=== PATIENT | female | born 1965 | race Caucasian/White ===

== ENCOUNTER 2017-03-19 11:53 | Emergency (ER) | payer BC, OTHER ==
[2017-03-19 12:29] VITALS: BP 120/81
--- NOTE | 2017-03-19 13:13 | EDM.PDOC ---
ED HPI GENERAL MEDICAL PROBLEM - General Chief Complaint: Back Pain or Injury Stated Complaint: BACK PAIN Time Seen by Provider: 03/19/17 13:00 Source of Information: Reports: Patient History Limitations: Reports: No Limitations - History of Present Illness INITIAL COMMENTS - FREE TEXT/NARRATIVE: HISTORY AND PHYSICAL: History of present illness: [Patient comes to the emergency room complaining of low back pain which began suddenly yesterday while she was at work. She was not doing any lifting or bending but just noticed a sharp pain in her low back. The pain comes on strong and makes her legs feel weak. She has not had any falls or lost her balance because of this. No trauma, falls or injury. She also admits to urinary frequency, hesitancy and dysuria. Denies flank pain. No fever or chills, abdominal pain, nausea or vomiting. Appetite has been good. No other complaints or concerns. She is also complaining of difficulty having bowel movements for the past 6 months. She has made dietary changes without improvement in her symptoms. No blood in her stools. Patient is postmenopausal. Smokes one pack of cigarettes per day. Does not drink alcohol. Works at [employer]. She does not have a local PCP.] Review of systems: As per history of present illness and below otherwise all systems reviewed and negative. Past medical history: As per history of present illness and as reviewed below otherwise noncontributory. Surgical history: As per history of present illness and as reviewed below otherwise noncontributory. Social history: No reported history of drug or alcohol abuse. Family history: As per history of present illness and as reviewed below otherwise noncontributory. Physical exam: HEENT: Atraumatic, normocephalic. Oral mucous members are pink and moist. No tonsillar swelling erythema or exudate. Lungs: Clear to auscultation, breath sounds equal bilaterally. Heart: S1S2, regular rate and rhythm. Abdomen: Bowel sounds are normoactive throughout. Abdomen is soft and nondistended. She is tender with palpation over suprapubic area. No CVA tenderness. No masses guarding or rebound. Pelvis: Stable nontender. Genitourinary: Deferred. Rectal: Normal sphincter tone. No hemorrhoids noted. No stool palpated in rectum. Back: No spinal tenderness or step-offs noted. No paraspinal muscular tenderness with palpation. Extremities: Atraumatic, without deformity. No difficulty ambulating.Neurovascular unremarkable. Neuro: Awake, alert, oriented. Cranial nerves II through XII unremarkable. Cerebellum unremarkable. Motor and sensory unremarkable throughout. Exam nonfocal. Diagnostics: [Urinalysis, CT abdomen and pelvis without contrast] Impression: [Low back pain Constipation] Plan: [Discussed with patient that her urine shows a large amount of blood so CT was completed looking for stone. No stone identified but moderate constipation was present. Encourage patient to take daily laxative until she can be seen by a local PCP. Discussed that hematuria requires follow-up and encouraged her to do so with a local primary care provider. She is given referral contact information. Encouraged patient to take Tylenol or ibuprofen for her low back pain. Strict return precautions are discussed with patient. She is in agreement with today's plan. All of her questions are answered and concerns are addressed. ] Definitive disposition and diagnosis as appropriate pending reevaluation and review of above. low back Pain Score (Numeric/FACES): 7 - Related Data Allergies Allergy/AdvReac Type Severity Reaction Status Date / Time No Known Allergies Allergy Verified 03/19/17 12:25 Home Meds: Home Meds . [No Known Home Meds] 11/10/15 [History] Past Medical History - Past Health History Medical/Surgical History: Denies Medical/Surgical History Social & Family History - Family History Family Medical History: Noncontributory - Tobacco Use Smoking Status *Q: Current Every Day Smoker Years of Tobacco use: 25 Packs/Tins Daily: 1 - Recreational Drug Use Recreational Drug Use: No ED ROS GENERAL - Review of Systems Review Of Systems: ROS reveals no pertinent complaints other than HPI. ED EXAM,LOWER BACK PAIN/INJURY - Physical Exam Exam: See Below Course - Vital Signs Last Recorded V/S: Last Vital Signs Temp 98.2 F 03/19/17 12:26 Pulse 73 03/19/17 12:26 Resp 20 03/19/17 12:26 BP 120/81 03/19/17 12:26 Pulse Ox 95 03/19/17 12:26 - Orders/Labs/Meds Orders: Active Orders 24 hr Category Date Time Status Abdomen Pelvis wo Cont [CT] Stat Exams 03/19/17 14:13 Taken Labs: Laboratory Tests 03/19/17 Range/Units 13:40 Urine Color YELLOW Urine Appearance CLEAR Urine pH 6.0 (5.0-8.0) Ur Specific [place] <= 1.005 (1.001-1.035) Urine Protein NEGATIVE (NEGATIVE) mg/dL Urine Glucose (UA) NEGATIVE (NEGATIVE) mg/dL Urine Ketones NEGATIVE (NEGATIVE) mg/dL Urine Occult Blood LARGE H (NEGATIVE) Urine Nitrite NEGATIVE (NEGATIVE) Urine Bilirubin NEGATIVE (NEGATIVE) Urine Urobilinogen 0.2 (<2.0) EU/dL Ur Leukocyte Esterase SMALL (NEGATIVE) Urine RBC 2-6 (0-2/HPF) Urine WBC 0-2 (0-5/HPF) Ur Epithelial Cells FEW (NONE-FEW) Urine Bacteria FEW (NEGATIVE) Departure - Departure Time of Disposition: 15:20 Disposition: Home, Self-Care 01 Condition: Good Clinical Impression: Low back pain Qualifiers: Chronicity: acute Back pain laterality: midline Sciatica presence: without sciatica Qualified Code(s): M54.5 - Low back pain - Discharge Information Instructions: Back Pain, Adult Referrals: PCP,None [Primary Care Provider] - Forms: ED Department Discharge Additional Instructions: The following information is given to patients seen in the emergency department who are being discharged to home. This information is to outline your options for follow-up care. We provide all patients seen in our emergency department with a follow-up referral. The need for follow-up, as well as the timing and circumstances, are variable depending upon the specifics of your emergency department visit. If you don't have a primary care physician on staff, we will provide you with a referral. We always advise you to contact your personal physician following an emergency department visit to inform them of the circumstance of the visit and for follow-up with them and/or the need for any referrals to a consulting specialist. The emergency department will also refer you to a specialist when appropriate. This referral assures that you have the opportunity for follow-up care with a specialist. All of these measure are taken in an effort to provide you with optimal care, which includes your follow-up. Under all circumstances we always encourage you to contact your private physician who remains a resource for coordinating your care. When calling for follow-up care, please make the office aware that this follow-up is from your recent emergency room visit. If for any reason you are refused follow-up, please contact the [facility] emergency department at and asked to speak to the emergency department charge nurse. JOANNA [facility] [place] [id number] Establish care with a local primary care provider at the clinic listed above within the next week. Return to ER as needed as discussed. - My Orders Last 24 Hours: My Active Orders 03/19/17 14:13 Abdomen Pelvis wo Cont [CT] Stat - Assessment/Plan Last 24 Hours: My Active Orders 03/19/17 14:13 Abdomen Pelvis wo Cont [CT] Stat
--- NOTE | 2017-03-21 13:25 | CT ---
EXAM DATE: 03/19/17 PATIENT'S AGE: 51 Patient: LOUIS BERMAN Facility: [place], [place] Site . Site : 1965 Study: CT Abdomen/Pelvis WO CONT [id number]/22/2017 2:47:08 PM Ordering Physician: Doctor Skinner Final Report: INDICATION: L LOWER BACK PAIN, HEMATURIA. PT STATES NO KNOWN TRAUMA AND CONSTIPATION HISTORY: Left-sided back pain and hematuria. COMPARISON: CT of the abdomen and pelvis 09/22/2013. TECHNIQUE: CT of the abdomen and pelvis. No intravenous contrast. Coronal/sagittal reconstruction images. FINDINGS: Lung bases: Partially visualized breast implants. Small pericardial effusion. The lung bases demonstrate no acute airspace disease. No basilar pneumothorax. Abdomen/pelvis: No solid hepatic mass. Contracted gallbladder. No inflammatory changes. No dilation of intrahepatic biliary radicals. Spleen size is normal. No pancreatic mass or pancreatic duct dilation. No glandular atrophy. There is an ectatic left renal pelvis. This is similar to 09/22/2013. There is no obstructive urolith. There is either a vascular calcification or less likely a stone in the right renal sinus on image 38, series 201. This measures 2-3 mm. No perinephric edema. Multiple pelvic calcifications are present, which are compatible phleboliths. These were present previously. The extraperitoneal space of [place] is clear. There is no adnexal mass. There is no wall thickening within the small bowel or colon. There is no transition point. Moderate constipation. No abdominal aortic aneurysm. No abdominal or pelvic lymphadenopathy by size criteria. The bone windows demonstrate no lytic or blastic bone lesions. The alignment is preserved. IMPRESSION: 1. Dilated left renal pelvis, similar to previous. 2. No obstructive urolith is identified. Pelvic calcifications are compatible with phleboliths. 3. Moderate constipation. 4. No abdominal or pelvic lymphadenopathy. Dictated by Shreyas Lowe MD @ 03/19/2017 3:12:36 PM Dictated by: Shreyas Lowe MD @ 03/19/2017 15:12:44 (Electronic Signature) Report Signed by Proxy. [facility]ENTER[facility]
== END 2017-03-19 15:35 | disposition home or self-care (01) ==
LOC: MW.ED 11:53
DX: M54.5 Low back pain (principal); K59.00 Constipation, unspecified; F17.210 Nicotine dependence, cigarettes, uncomplicated
CPT/HCPCS: 74176; 74176-26; 81001; 99282; 99284-25

== ENCOUNTER 2017-04-21 10:48 | Day surgery (SDC) | payer BC ==
[~2017-04-21 10:48] MED LIST: Lactated Ringers 1,000 ML IV SCH
--- NOTE | 2017-04-21 11:47 | PCM.PREANE ---
Preanesthetic Assessment - Anesthesia/Transfusion/Family Hx Anesthesia History: Prior Anesthesia Without Reaction Family History of Anesthesia Reaction: No Transfusion History: No Prior Transfusion(s) - Review of Systems General: No Symptoms Pulmonary: No Symptoms Cardiovascular: No Symptoms Gastrointestinal: No Symptoms Neurological: No Symptoms Other: Reports: None - Physical Assessment NPO Status Date: 04/20/17 O2 Sat by Pulse Oximetry: 99 Respiratory Rate: 16 Vital Signs: Last Vital Signs Temp 36.4 C 04/21/17 10:55 Pulse 59 L 04/21/17 10:55 Resp 16 04/21/17 10:55 BP 111/68 04/21/17 10:55 Pulse Ox 99 04/21/17 10:55 Height: 1.65 m Weight: 58.513 kg ASA Class: 2 Mental Status: Alert & Oriented x3 Airway Class: Mallampati = 1 Dentition: Reports: Normal Dentition ROM/Head Extension: Full Lungs: Clear to Auscultation, Normal Respiratory Effort Cardiovascular: Regular Rate, Regular Rhythm - Lab Values: Laboratory Last Values Urine Color YELLOW 04/21/17 10:51 Urine Appearance SLT CLOUDY 04/21/17 10:51 Urine pH 5.5 (5.0-8.0) 04/21/17 10:51 Ur Specific [place] 1.025 (1.001-1.035) 04/21/17 10:51 Urine Protein NEGATIVE mg/dL (NEGATIVE) 04/21/17 10:51 Urine Glucose (UA) NEGATIVE mg/dL (NEGATIVE) 04/21/17 10:51 Urine Ketones NEGATIVE mg/dL (NEGATIVE) 04/21/17 10:51 Urine Occult Blood LARGE (NEGATIVE) H 04/21/17 10:51 Urine Nitrite NEGATIVE (NEGATIVE) 04/21/17 10:51 Urine Bilirubin NEGATIVE (NEGATIVE) 04/21/17 10:51 Urine Urobilinogen 0.2 EU/dL (<2.0) 04/21/17 10:51 Ur Leukocyte Esterase SMALL (NEGATIVE) 04/21/17 10:51 Urine HCG, Qual NEGATIVE (NEGATIVE) 04/21/17 10:51 - Allergies Allergies/Adverse Reactions: Allergies Allergy/AdvReac Type Severity Reaction Status Date / Time No Known Allergies Allergy Verified 04/15/17 12:10 - Anesthesia Plan Pre-Op Medication Ordered: None - Acknowledgements Anesthesia Type Planned: MAC Pt an Appropriate Candidate for the Planned Anesthesia: Yes Alternatives and Risks of Anesthesia Discussed w Pt/Guardian: Yes Pt/Guardian Understands and Agrees with Anesthesia Plan: Yes Additional Comments: pmh: copd, htn PreAnesthesia Questionnaire - Past Health History Medical/Surgical History: Denies Medical/Surgical History Other HEENT History: wears glasses Cardiovascular History: Reports: Hypertension Other Cardiovascular History: no longer takes meds Respiratory History: Reports: COPD Other Respiratory History: no longer uses inhalers/nebulizers Gastrointestinal History: Reports: Chronic Constipation B[employer]ING [employer]ER History: Reports: Musculoskeletal History: Reports: Fracture Other Musculoskeletal History: hx of fx arm, leg clavicle Hematologic History: Reports: Anemia - Past Surgical History GI Surgical History: Reports: None Female Surgical History: Reports: Other (See Below) Other Female Surgeries/Procedures: Laparoscopy, uterine myomectomy Musculoskeletal Surgical History: Reports: None - SUBSTANCE USE Smoking Status *Q: Current Every Day Smoker Tobacco Use Within Last Twelve Months: Cigarettes Days Per Week of Alcohol Use: 0 Recreational Drug Use History: No - HOME MEDS Home Medications: Home Meds Iron 28 mg PO DAILY 04/15/17 [History] - CURRENT (IN HOUSE) MEDS Current Meds: Current Medications Lactated Ringer's (Ringers, Lactated) 1,000 mls @ 125 mls/hr IV ASD[facility]ED [facility] Last Admin: 04/21/17 11:02 Dose: 125 mls/hr
[2017-04-21] MEDS ORDERED: Propofol 200 MG/20 ML SDV ONE ×2 (12:38→13:03)
[2017-04-21] MEDS ORDERED: Midazolam 1 MG/ML 2 ML SDV ONE (12:39)
[2017-04-21] MEDS ORDERED: fentaNYL 100 MCG/2 ML SDV ONE (12:39)
--- NOTE | 2017-04-21 13:28 | PCM.OPNOTE ---
- General Post-Op/Procedure Note Date of Surgery/Procedure: 04/21/17 Operative Procedure(s): colonoscopy w bx Findings: see dict [id number] Pre Op Diagnosis: abd pain and rectal bleed Post-Op Diagnosis: Same Anesthesia Technique: Moderate Sedation Primary Surgeon: Dominic Marie Pathology: random colon bx Complications: None Condition: Good
[2017-04-21 14:02] VITALS: BP 108/68
--- NOTE | 2017-04-21 14:21 | PCM.POSTAN ---
POST ANESTHESIA ASSESSMENT - MENTAL STATUS Mental Status: Alert, Oriented - RESPIRATORY Respiratory Status: Respiratory Rate WNL, Airway Patent, O2 Saturation Stable - CARDIOVASCULAR CV Status: Pulse Rate WNL, Blood Pressure Stable - GASTROINTESTINAL GI Status: No Symptoms - POST OP HYDRATION Hydration Status: Adequate & Stable
--- NOTE | 2017-04-21 14:22 | PCM48HPAN ---
Post Anesthesia Note - EVALUATION WITHIN 48HRS OF ANESTHETIC Vital Signs in Normal Range: Yes Patient Participated in Evaluation: Yes Respiratory Function Stable: Yes Airway Patent: Yes Cardiovascular Function Stable: Yes Hydration Status Stable: Yes Pain Control Satisfactory: Yes Nausea and Vomiting Control Satisfactory: Yes Mental Status Recovered: Yes
--- NOTE | 2017-04-21 21:05 | OR ---
SURGEON: Dominic Marie MD DATE OF PROCEDURE: 04/21/2017 PREOPERATIVE DIAGNOSES: 1. Abdominal pain. 2. Intermittent rectal bleeding. POSTOPERATIVE DIAGNOSES: 1. Mild diverticulosis. 2. Internal hemorrhoid. 3. Redundant colon. PROCEDURE PERFORMED: Colonoscopy with biopsy. PROCEDURE PERFORMED IN DETAIL: The patient was taken to the endoscopy room. A time out was called, patient identified, and procedure identified. Diprivan was then administrated. Patient went from awake to sleep, hearing doctor talking or door closing is normal. Perineum inspection and digital examination were then performed. A well- lubricated colonoscope was gently inserted through the rectum, advanced past the rectosigmoid junction, the descending colon, splenic flexure, transverse colon, hepatic flexure, ascending colon, arrived to the cecum. Cecum was identified as dictated in the finding. Then the scope was carefully withdrawn while attention was paid to the mucosal surface for any abnormality. Air will be sucked out during the scope withdrawal. At the rectum, retroflexed to examine any rectal diseases, fistula or hemorrhoids. During mucosal examination, abnormality or polyp was noted; picture taken and biopsy performed. Patient tolerated procedure well. There were no intraoperative complications, and Dr. Marie was present throughout the whole procedure. FINDINGS: 1. The patient is easily sedated with [employer] and Diprivan. The patient is soundly snoring. 2. Bowel prep is average to good. Very little liquid stool. 3. The patient's colon is rather redundant, very very difficult to reach the cecum. Cecum only by observed at distance, indicated by ileocecal fold, one-to-one indentation and light emittance, and appendiceal orifice is not observed. The mucosa was examined upon scope pulling out. The patient does not have polyp, mass, growth, inflammation, stricture, AV malformation, bleeding, or ulceration. The patient has mild diverticulosis on the left colon. No signs or symptoms of diverticulitis. Mild internal hemorrhoid and no external hemorrhoids. The patient has one skin tag close to anal opening about 1 cm. A random biopsy done for abdominal pain and rectal bleeding, and the patient would benefit from repeat colonoscopy 10 years from today if clinically indicated otherwise or biopsy pathology indicated otherwise. JERSON / ANDREAS /[id number]
== END 2017-04-21 14:11 | disposition home or self-care (01) ==
LOC: MW.SDS 10:48
PROVIDERS: ATTEND Surgery
DX: K57.30 Diverticulosis of large intestine without perforation or abscess without bleeding (principal); K64.8 Other hemorrhoids; K63.89 Other specified diseases of intestine; K64.4 Residual hemorrhoidal skin tags; D64.9 Anemia, unspecified; K59.09 Other constipation; J44.9 Chronic obstructive pulmonary disease, unspecified; I10 Essential (primary) hypertension; F17.210 Nicotine dependence, cigarettes, uncomplicated; Z79.899 Other long term (current) drug therapy; Z98.890 Other specified postprocedural states
CPT/HCPCS: 45380; 81001; 81025; J2250; J3010; J7120; 00810; 88305; J2704

== ENCOUNTER 2017-12-04 12:59 | Emergency (ER) | payer OTHER, BC ==
[2017-12-04 13:36] VITALS: BP 114/76
--- NOTE | 2017-12-04 13:54 | EDM.PDOC ---
ED HPI GENERAL MEDICAL PROBLEM - General Chief Complaint: Back Pain or Injury Stated Complaint: BACK HURTS Time Seen by Provider: 12/04/17 13:05 Source of Information: Reports: Patient History Limitations: Reports: No Limitations - History of Present Illness INITIAL COMMENTS - FREE TEXT/NARRATIVE: HISTORY AND PHYSICAL: History of present illness: Patient is a 52-year-old female who presents to the emergency room today with complaints of mid back pain into the right rib. She states she slipped and fell on ice yesterday landing on her back dating it "knocked the wind out of me". She denies hitting her head or any loss of consciousness. That time she has had increased pain with taking in deep breaths or palpating to the right posterior thoracic chest wall. She denies any fever, chills, chest pain or shortness of breath. She denies any headache, change in vision, nausea, vomiting, diarrhea/ constipation. Denies any numbness or tingling to her peripheral/distal extremities. Patient does have a history of MS Review of systems: As per history of present illness and below otherwise all systems reviewed and negative. Past medical history: As per history of present illness and as reviewed below otherwise noncontributory. Surgical history: As per history of present illness and as reviewed below otherwise noncontributory. Social history: No reported history of drug or alcohol abuse. Family history: As per history of present illness and as reviewed below otherwise noncontributory. Physical exam: General: HEENT: Atraumatic, normocephalic, pupils equal and reactive bilaterally, negative for conjunctival pallor or scleral icterus, mucous membranes moist, throat clear, neck supple, nontender, trachea midline. No drooling or trismus noted. No meningeal signs Lungs: Clear to auscultation, breath sounds equal bilaterally, chest tender to right posterior mid back area. Heart: S1S2, regular rate and rhythm without overt murmur Abdomen: Soft, nondistended, nontender. Negative for masses or hepatosplenomegaly. Negative for costovertebral tenderness. Pelvis: Stable nontender. Genitourinary: Deferred. Rectal: Deferred. Skin: Intact, warm, dry. No lesions or rashes noted. C-Spine/Back: No pinpoint vertebral tenderness upon palpation. No step-offs, crepitus or obvious deformities. Is ambulatory without difficulty or deficits. Steady gait. No numbness or tingling to upper or lower extremities. No urinary or fecal incontinence. Extremities: Atraumatic, negative for cords or calf pain. Neurovascular unremarkable. Neuro: Awake, alert, oriented. Cranial nerves II through XII unremarkable. Cerebellum unremarkable. Motor and sensory unremarkable throughout. Exam nonfocal. Notes: X-ray shows no fractures. We'll give the patient 10 tablets of tramadol. And an incentive spirometer to avoid any further complications. We discussed appropriate follow-up with her primary care provider. Denies any further questions at this time. Diagnostics: X-ray Therapeutics: Incentive Spirometer Impression: Rib contusion Plan: 1. Please use the incentive spirometer 3-4 times daily (approx 5-8 deep breathes ) over the next couple days. 2. You may use Tylenol and/or ibuprofen as needed for pain management. Tramadol (#10 - NRF) for evening/night time use; as this can make you drowsy. Do not take while driving or needing to be functioning outside the house. Rest and ice the affected areas. 3. Follow-up with your primary caregiver in the next 1-2 days. Return to the ED as needed and as discussed. Definitive disposition and diagnosis as appropriate pending reevaluation and review of above. Duration: Day(s): Location: Reports: Back Right Middle Back Pain Score (Numeric/FACES): 8 - Related Data Allergies Allergy/AdvReac Type Severity Reaction Status Date / Time No Known Allergies Allergy Verified 12/04/17 13:17 Home Meds: Home Meds . 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: Musculoskeletal History: Reports: Fracture Other Musculoskeletal History: hx of fx arm, leg clavicle Hematologic History: Reports: Anemia - Infectious Disease History Infectious Disease History: Reports: Chicken Pox - Past Surgical History GI Surgical History: Reports: None Female Surgical History: Reports: Other (See Below) Other Female Surgeries/Procedures: Laparoscopy, uterine myomectomy Musculoskeletal Surgical History: Reports: None Social & Family History - Family History Family Medical History: Noncontributory - Tobacco Use Smoking Status *Q: Current Every Day Smoker Years of Tobacco use: 40 Packs/Tins Daily: 1 - Alcohol Use Days Per Week of Alcohol Use: 0 - Recreational Drug Use Recreational Drug Use: No Drug Use in Last 12 Months: No ED ROS GENERAL - Review of Systems Review Of Systems: ROS reveals no pertinent complaints other than HPI. ED EXAM, UPPER BACK/NECK PAIN - Physical Exam Exam: See Below (see dictation) Course - Vital Signs Last Recorded V/S: Last Vital Signs Temp 98.6 F 12/04/17 13:14 Pulse 82 12/04/17 13:14 Resp 18 12/04/17 13:14 BP 114/76 12/04/17 13:14 Pulse Ox 95 12/04/17 13:14 - Orders/Labs/Meds Orders: Active Orders 24 hr Category Date Time Status Ribs 2V wo Chest Rt [CR] Stat Exams 12/04/17 13:24 Ordered Departure - Departure Time of Disposition: 14:47 Disposition: Home, Self-Care 01 Clinical Impression: Contusion of rib on right side Qualifiers: Encounter type: initial encounter Qualified Code(s): S20.211A - Contusion of right front wall of thorax, initial encounter - Discharge Information Instructions: Chest Contusion, Adult, [id number] Referrals: PCP,None [Primary Care Provider] - Forms: ED Department Discharge Additional Instructions: The following information is given to patients seen in the emergency department who are being discharged to home. This information is to outline your options for follow-up care. We provide all patients seen in our emergency department with a follow-up referral. The need for follow-up, as well as the timing and circumstances, are variable depending upon the specifics of your emergency department visit. If you don't have a primary care physician on staff, we will provide you with a referral. We always advise you to contact your personal physician following an emergency department visit to inform them of the circumstance of the visit and for follow-up with them and/or the need for any referrals to a consulting specialist. The emergency department will also refer you to a specialist when appropriate. This referral assures that you have the opportunity for follow-up care with a specialist. All of these measure are taken in an effort to provide you with optimal care, which includes your follow-up. Under all circumstances we always encourage you to contact your private physician who remains a resource for coordinating your care. When calling for follow-up care, please make the office aware that this follow-up is from your recent emergency room visit. If for any reason you are refused follow-up, please contact the Emergency Department at and asked to speak to the emergency department charge nurse. Primary Care [address] [place] [id number] 1. Please use the incentive spirometer 3-4 times daily (approx 5-8 deep breathes ) over the next couple days. 2. You may use Tylenol and/or ibuprofen as needed for pain management. Tramadol for evening/night time use; as this can make you drowsy. Do not take while driving or needing to be functioning outside the house. Rest and ice the affected areas. 3. Follow-up with your primary caregiver in the next 1-2 days. Return to the ED as needed and as discussed. - My Orders Last 24 Hours: My Active Orders 12/04/17 13:24 Ribs 2V wo Chest Rt [CR] Stat - Assessment/Plan Last 24 Hours: My Active Orders 12/04/17 13:24 Ribs 2V wo Chest Rt [CR] Stat
--- NOTE | 2017-12-05 14:29 | CR ---
EXAM DATE: 12/04/17 PATIENT'S AGE: 52 Patient: LOUIS BERMAN Facility: [place], [place] Site . Site : 1965 Study: XRay Chest Right ribs [id number] 2:06:49 PM Ordering Physician: Doctor Skinner Final Report: Fall on ice PA chest oblique views of the right ribs. Findings : Normal cardiac mediastinal silhouette. No acute airspace or interstitial process. Oblique views of the right ribs demonstrate no evidence for fracture. Dictated by Jazmine Villasenor MD @ Dec 04 2017 2:33PM (Electronic Signature) Report Signed by Proxy. DON
== END 2017-12-04 15:00 | disposition home or self-care (01) ==
LOC: MW.ED 12:59
DX: S20.211A Contusion of right front wall of thorax, initial encounter (principal); I10 Essential (primary) hypertension; F17.210 Nicotine dependence, cigarettes, uncomplicated; W00.9XXA Unspecified fall due to ice and snow, initial encounter
CPT/HCPCS: 71100-26-RT; 71100-RT; 99283

== ENCOUNTER 2018-02-13 10:14 | Emergency (ER) | payer BC, OTHER ==
[2018-02-13] MEDS ORDERED: Sodium Chloride 0.9% 1,000 ML IV ONE (10:30)
[2018-02-13] MEDS ORDERED: Aspirin 81 MG Tab.Chew PO ONE (10:30)
--- NOTE | 2018-02-13 10:42 | EDM.PDOC ---
ED HPI GENERAL MEDICAL PROBLEM - General Chief Complaint: Respiratory Problem Stated Complaint: FEVER Time Seen by Provider: 02/13/18 10:16 Source of Information: Reports: Patient History Limitations: Reports: No Limitations - History of Present Illness INITIAL COMMENTS - FREE TEXT/NARRATIVE: HISTORY AND PHYSICAL: History of present illness: Patient is a 52-year-old female who presents to the emergency room today with complaints of sternal chest pain, cough, fever, generalized weakness and " muscle spasticity" x 2 days. Patient was recently diagnosed with multiple sclerosis in September [address] Mclain. States she has felt well since that time. Over the past two days she has had increased weakness and feels like her muscles are tight. States, "I'm having a MS flare up". Reports she was able to get herself here, but felt she needed to use a wheelchair as she felt so weak, that she may fall. Denies any recent injuries/trauma, change in vision, headache , syncope, or LOC. Denies any abdominal pain, nausea, vomiting, diarrhea/ constipation or dysuria. Has been eating and drinking appropriately. Currently receives Interferon once weekly History of anemia, COPD, chronic constipation, and MS. Review of systems: As per history of present illness and below otherwise all systems reviewed and negative. Past medical history: As per history of present illness and as reviewed below otherwise noncontributory. Surgical history: As per history of present illness and as reviewed below otherwise noncontributory. Social history: No reported history of drug or alcohol abuse. Family history: As per history of present illness and as reviewed below otherwise noncontributory. Physical exam: General: Well-developed and well-nourished 52-year-old female. Alert and oriented. Nontoxic appearing and in no acute distress. HEENT: Atraumatic, normocephalic, pupils equal and reactive bilaterally, negative for conjunctival pallor or scleral icterus, mucous membranes moist, throat clear, neck supple, nontender, trachea midline. No drooling or trismus noted. No meningeal signs Lungs: Clear to auscultation, breath sounds equal bilaterally, chest nontender. Heart: S1S2, regular rate and rhythm without overt murmur Abdomen: Soft, nondistended, nontender. Negative for masses or hepatosplenomegaly. Negative for costovertebral tenderness. Pelvis: Stable nontender. Genitourinary: Deferred. Rectal: Deferred. Skin: Intact, warm, dry. No lesions or rashes noted. Extremities: Atraumatic, negative for cords or calf pain. Neurovascular unremarkable. Neuro: Awake, alert, oriented. Cranial nerves II through XII unremarkable. Cerebellum unremarkable. Deep tendon reflexes intact. Motor and sensory unremarkable throughout. Exam nonfocal. Notes: Patient is ambulatory as I did see her get in and out of the bed from the wheelchair. She is able to move all extremities. Her physical examination is within normal limits. He is agreeable to receiving IV fluids and routine lab work at this time. Vital signs are stable. Labs, EKG and chest x-ray are unremarkable. Chest x-ray mild hyperinflation with a trace of pleural effusion. I shared this information with the patient. Patient reports that "God has healed my COPD". Patient continues to state that her "lungs hurt". Although her labs are normal I did stress that she stay overnight for observation. She is adamant that she will not stay over night. She becomes tearful and states "I just want to have the strength I used too... I know all this is my MS". The diagnosis of MS appears to cause her anxiety about her overall health. She frequently mentions how "I'm going to end up in a wheelchair and because of this". We discussed close follow up with Dr Majano. She states she will call her in the morning. I encouraged her to return to the ED if her symptoms return, worsen or new symptoms develop (as he refuses admission). She denies any further questions or concerns. Patient did ambulate out of the emergency room upon discharge. Diagnostics: CBC, CMP, Troponin, EKG, ESR, CRP, CXR Therapeutics: Normal Saline Impression: Bronchitis Anxiety About Health Nonspecific Weakness Plan: 1. You declined admission today, please return if symptoms return, worsen or new symptoms develop as we discussed. 2. Inform Dr Mclain of your concerns/ER visit for an expedited follow up appointment. Return to the ED as needed as discussed. Definitive disposition and diagnosis as appropriate pending reevaluation and review of above. Onset: Today Duration: Day(s): Location: Reports: Generalized chest and lungs when breathing Pain Score (Numeric/FACES): 8 - Related Data Allergies Allergy/AdvReac Type Severity Reaction Status Date / Time No Known Allergies Allergy Verified 02/13/18 10:25 Home Meds: Home Meds Interferon Beta-1a/Albumin [Rebif Rebidose 44 Mcg/0.5 ml] 1 injection SUBCUT WEEKLY 02/13/18 [History] Past Medical History - Past Health History Medical/Surgical History: Denies Medical/Surgical History Other HEENT History: wears glasses Cardiovascular History: Reports: Hypertension Other Cardiovascular History: no longer takes meds Respiratory History: Reports: COPD Other Respiratory History: no longer uses inhalers/nebulizers Gastrointestinal History: Reports: Chronic Constipation [employer] History: Reports: Musculoskeletal History: Reports: Fracture Other Musculoskeletal History: hx of fx arm, leg clavicle Neurological History: Reports: MS Hematologic History: Reports: Anemia - Infectious Disease History Infectious Disease History: Reports: Chicken Pox - Past Surgical History GI Surgical History: Reports: None Female Surgical History: Reports: Other (See Below) Other Female Surgeries/Procedures: Laparoscopy, uterine myomectomy Musculoskeletal Surgical History: Reports: None Social & Family History - Family History Family Medical History: Noncontributory - Tobacco Use Smoking Status *Q: Current Every Day Smoker Years of Tobacco use: 40 Packs/Tins Daily: 0.5 - Caffeine Use Caffeine Use: Reports: None - Recreational Drug Use Recreational Drug Use: No ED ROS GENERAL - Review of Systems Review Of Systems: ROS reveals no pertinent complaints other than HPI. ED EXAM, GENERAL - Physical Exam Exam: See Below (See dictation) Course - Vital Signs Last Recorded V/S: Last Vital Signs Temp 98.3 F 02/13/18 11:34 Pulse 73 02/13/18 11:34 Resp 18 02/13/18 10:44 BP 123/73 02/13/18 11:34 Pulse Ox 94 L 02/13/18 11:34 - Orders/Labs/Meds Orders: Active Orders 24 hr Category Date Time Status EKG Documentation Completion [RC] STAT Care 02/13/18 10:30 Active Labs: Laboratory Tests 02/13/18 02/13/18 02/13/18 Range/Units 10:38 10:38 10:38 WBC 8.70 (4.0-11.0) K/uL RBC 4.35 (4.30-5.90) M/uL Hgb 14.0 (12.0-16.0) g/dL Hct 42.3 (36.0-46.0) % MCV 97.2 (80.0-98.0) fL MCH 32.2 H (27.0-32.0) pg MCHC 33.1 (31.0-37.0) g/dL RDW Std Deviation 41.3 (28.0-62.0) fl RDW Coeff of Betty 12 (11.0-15.0) % Plt Count 162 (150-400) K/uL MPV 9.20 (7.40-12.00) fL Neut % (Auto) 77.0 (48.0-80.0) % Lymph % (Auto) 12.2 L (16.0-40.0) % Bowie % (Auto) 10.5 (0.0-15.0) % Eos % (Auto) 0.1 (0.0-7.0) % Baso % (Auto) 0.2 (0.0-1.5) % Neut # (Auto) 6.7 H (1.4-5.7) K/uL Lymph # (Auto) 1.1 (0.6-2.4) K/uL Bowie # (Auto) 0.9 H (0.0-0.8) K/uL Eos # (Auto) 0.0 (0.0-0.7) K/uL Baso # (Auto) 0.0 (0.0-0.1) K/uL ESR 14 (0-29) mm/hr Sodium 136 (136-145) mmol/L Potassium 3.9 (3.5-5.1) mmol/L Chloride 99 (98-107) mmol/L Carbon Dioxide 26.9 (21.0-32.0) mmol/L BUN 16 (7.0-18.0) mg/dL Creatinine 1.0 (0.6-1.0) mg/dL Est Cr Clr Drug Dosing 56.55 mL/min Estimated GFR (MDRD) 58.2 ml/min Glucose 106 (74-106) mg/dL Calcium 8.8 (8.5-10.1) mg/dL Total Bilirubin 0.3 (0.2-1.0) mg/dL AST 48 H (15-37) IU/L ALT 62 (14-63) IU/L Alkaline Phosphatase 63 (46-116) U/L Troponin I < 0.050 (0.000-0.056) ng/mL C-Reactive Protein (0.00-0.90) mg/dL Total Protein 7.4 (6.4-8.2) g/dL Albumin 3.7 (3.4-5.0) g/dL Globulin 3.7 H (2.0-3.5) g/dL Albumin/Globulin Ratio 1.0 L (1.3-2.8) 02/13/18 Range/Units 10:38 WBC (4.0-11.0) K/uL RBC (4.30-5.90) M/uL Hgb (12.0-16.0) g/dL Hct (36.0-46.0) % MCV (80.0-98.0) fL MCH (27.0-32.0) pg MCHC (31.0-37.0) g/dL RDW Std Deviation (28.0-62.0) fl RDW Coeff of Betty (11.0-15.0) % Plt Count (150-400) K/uL MPV (7.40-12.00) fL Neut % (Auto) (48.0-80.0) % Lymph % (Auto) (16.0-40.0) % Bowie % (Auto) (0.0-15.0) % Eos % (Auto) (0.0-7.0) % Baso % (Auto) (0.0-1.5) % Neut # (Auto) (1.4-5.7) K/uL Lymph # (Auto) (0.6-2.4) K/uL Bowie # (Auto) (0.0-0.8) K/uL Eos # (Auto) (0.0-0.7) K/uL Baso # (Auto) (0.0-0.1) K/uL ESR (0-29) mm/hr Sodium (136-145) mmol/L Potassium (3.5-5.1) mmol/L Chloride (98-107) mmol/L Carbon Dioxide (21.0-32.0) mmol/L BUN (7.0-18.0) mg/dL Creatinine (0.6-1.0) mg/dL Est Cr Clr Drug Dosing mL/min Estimated GFR (MDRD) ml/min Glucose (74-106) mg/dL Calcium (8.5-10.1) mg/dL Total Bilirubin (0.2-1.0) mg/dL AST (15-37) IU/L ALT (14-63) IU/L Alkaline Phosphatase (46-116) U/L Troponin I (0.000-0.056) ng/mL C-Reactive Protein <0.20 (0.00-0.90) mg/dL Total Protein (6.4-8.2) g/dL Albumin (3.4-5.0) g/dL Globulin (2.0-3.5) g/dL Albumin/Globulin Ratio (1.3-2.8) Meds: Medications Discontinued Medications Generic Name Dose Route Start Last Admin Trade Name Freq PRN Reason Stop Dose Admin Aspirin 324 mg 02/13/18 10:30 02/13/18 10:42 Aspirin PO 02/13/18 10:31 324 mg ONETIME ONE Administration Sodium Chloride 1,000 mls @ 999 mls/hr 02/13/18 10:30 02/13/18 10:42 Normal Saline IV 02/13/18 11:30 999 mls/hr STAT ONE Administration Departure - Departure Time of Disposition: 11:28 Disposition: Home, Self-Care 01 Clinical Impression: Anxiety about health, Bronchitis - Discharge Information Instructions: Acute Bronchitis, Adult, [id number] Referrals: PCP,None [Primary Care Provider] - Forms: ED Department Discharge Additional Instructions: The following information is given to patients seen in the emergency department who are being discharged to home. This information is to outline your options for follow-up care. We provide all patients seen in our emergency department with a follow-up referral. The need for follow-up, as well as the timing and circumstances, are variable depending upon the specifics of your emergency department visit. If you don't have a primary care physician on staff, we will provide you with a referral. We always advise you to contact your personal physician following an emergency department visit to inform them of the circumstance of the visit and for follow-up with them and/or the need for any referrals to a consulting specialist. The emergency department will also refer you to a specialist when appropriate. This referral assures that you have the opportunity for follow-up care with a specialist. All of these measure are taken in an effort to provide you with optimal care, which includes your follow-up. Under all circumstances we always encourage you to contact your private physician who remains a resource for coordinating your care. When calling for follow-up care, please make the office aware that this follow-up is from your recent emergency room visit. If for any reason you are refused follow-up, please contact the [facility] Emergency Department at and asked to speak to the emergency department charge nurse. [facility] Primary Care [address] [place] [id number] [facility] Specialty Care - Neurology Professional Building [address] [place] [address], [address] [place] [address] 1. You declined admission today, please return if symptoms return, worsen or new symptoms develop as we discussed. 2. Inform Dr Mclain of your concerns/ER visit for an expedited follow up appointment. Return to the ED as needed as discussed. - My Orders Last 24 Hours: My Active Orders 02/13/18 10:30 EKG Documentation Completion [RC] STAT - Assessment/Plan Last 24 Hours: My Active Orders 02/13/18 10:30 EKG Documentation Completion [RC] STAT
[2018-02-13 11:12] LABS: CHLORIDE,CL 99 mmol/L (98-107); SODIUM,NA 136 mmol/L (136-145)
--- NOTE | 2018-02-13 11:31 | CR ---
EXAMINATION: Portable chest radiograph. HISTORY: Shortness of breath. FINDINGS: The trachea is midline. The cardiomediastinal silhouette is within normal limits. No focal consolidat ion or pleural effusion. Mild hyperinflation. A trace left pleural effusion is not excluded. Osseous structures appear unremarkable. IMPRESSION: 1. Mild hyperinflation with a trace left pleural effusion.
[2018-02-13 11:36] VITALS: BP 123/73
== END 2018-02-13 11:53 | disposition home or self-care (01) ==
LOC: MW.ED 10:14
DX: J44.9 Chronic obstructive pulmonary disease, unspecified (principal); F41.9 Anxiety disorder, unspecified; I10 Essential (primary) hypertension; F17.210 Nicotine dependence, cigarettes, uncomplicated
CPT/HCPCS: 36415; 71045; 80053; 84484; 85025; 85652; 86140; 93005; 96360; 99285; A9270; J7040; 99283

== ENCOUNTER 2019-10-02 15:51 | Observation (INO) | payer BC ==
--- NOTE | 2019-10-02 15:57 | EDM.PDOC ---
ED HPI GENERAL MEDICAL PROBLEM - General Stated Complaint: sick Time Seen by Provider: 10/02/19 15:52 Source of Information: Reports: Patient History Limitations: Reports: No Limitations - History of Present Illness INITIAL COMMENTS - FREE TEXT/NARRATIVE: HISTORY AND PHYSICAL: History of present illness: Patient is a 53-year-old female who presents to the ED today for concern of an multiple sclerosis flare-up. Patient states that she follows with Dr. Majano in the clinic and has not seen her since November. Patient states that since November she has had a constant decline and over the past couple weeks she has not been able to take care of herself like usual. Patient states the MS affects her lower legs and is starting to affect her left arm. Patient states she does live at home and does not have any help or assistance at home. Patient also complains of low back pain and cysts and states this is been ongoing over the last 4 days. Patient states that she is incontinent of both urine and bowel per her baseline (approximately 1 year) but has not had any changes in her incontinence. Denies retention or saddle anesthesia. Patient denies fever, chills, chest pain, shortness of breath, or cough. Denies headache, neck stiff ness, change in vision, syncope, or near syncope. Denies nausea, vomiting, abdominal pain, diarrhea, constipation, or dysuria. Has not noted any blood in urine or stool. Patient has been eating and drinking appropriately. Review of systems: As per history of present illness and below otherwise all systems reviewed and negative. Past medical history: As per history of present illness and as reviewed below otherwise noncontributory. Surgical history: As per history of present illness and as reviewed below otherwise noncontributory. Social history: See social history for further information Family history: As per history of present illness and as reviewed below otherwise noncontributory. Physical exam: General: Patient is alert, oriented, and in no acute distress. Patient sitting comfortably on exam table. HEENT: Atraumatic, normocephalic, pupils equal and reactive bilaterally, negative for conjunctival pallor or scleral icterus, mucous membranes moist, TMs normal bilaterally, throat clear, neck supple, nontender, trachea midline. No drooling or trismus noted. No meningeal signs. No hot potato voice noted. Lungs: Clear to auscultation, breath sounds equal bilaterally, chest nontender. Heart: S1S2, regular rate and rhythm without overt murmur Abdomen: Soft, nondistended, nontender. Negative for masses or hepatosplenomegaly. Negative for costovertebral tenderness. Pelvis: Stable nontender. Genitourinary: Deferred. Rectal: Deferred. Skin: Intact, warm, dry. No lesions or rashes noted. Extremities: Atraumatic, negative for cords or calf pain. Neurovascular unremarkable. No obvious deformity of the complete spine. No step-offs, crepitus, or point tenderness to palpation of the spinous process of complete spine. Neuro: Awake, alert, oriented. Cranial nerves II through XII unremarkable. Patient does have brace on the left foot holding ankle in flexion (preventing foot drop). Limited ROM of bilateral lower extremities but full ROM of bilateral upper extremities. Notes: I did call and speak directly to Dr. Majano, neurology on-call who has come into the ED to personally see and evaluate the patient. See her official consult note for further treatment and disposition. Dr. Jarrett consulted on patient and will admit to observation. Voices understanding and is agreeable to plan of care. Denies any further questions or concerns at this time. Diagnostics: CBC, CMP, UA, EKG, Troponin, Lumbar CT, CXR Therapeutics: Rocephin Impression: Weakness Urinary tract infection H/O multiple sclerosis Plan: Admit to observation to Dr. Jarrett Definitive disposition and diagnosis as appropriate pending reevaluation and review of above. lower back Pain Score (Numeric/FACES): 7 - Related Data Allergies Allergy/AdvReac Type Severity Reaction Status Date / Time No Known Allergies Allergy Verified 10/02/19 16:00 Home Meds: Home Meds Cannabidiol (Cbd) Extract [CBD Oil] 1 dose PO BID 10/02/19 [History] Past Medical History - Past Health History Medical/Surgical History: Denies Medical/Surgical History Other HEENT History: wears glasses Cardiovascular History: Reports: Hypertension Other Cardiovascular History: no longer takes meds Respiratory History: Reports: COPD Other Respiratory History: no longer uses inhalers/nebulizers Gastrointestinal History: Reports: Chronic Constipation 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: Musculoskeletal History: Reports: Fracture Other Musculoskeletal History: hx of fx arm, leg clavicle Neurological History: Reports: MS Hematologic History: Reports: Anemia - Infectious Disease History Infectious Disease History: Reports: Chicken Pox - Past Surgical History GI Surgical History: Reports: None Female Surgical History: Reports: Other (See Below) Other Female Surgeries/Procedures: Laparoscopy, uterine myomectomy Musculoskeletal Surgical History: Reports: None Social & Family History - Family History Family Medical History: Noncontributory - Caffeine Use Caffeine Use: Reports: None ED ROS GENERAL - Review of Systems Review Of Systems: Comprehensive ROS is negative, except as noted in HPI. ED EXAM, GENERAL - Physical Exam Exam: See Below (see dictation) Course - Vital Signs Last Recorded V/S: Last Vital Signs Temp 99 F 10/02/19 15:58 Pulse 99 10/02/19 15:58 Resp 18 10/02/19 15:58 BP 137/81 10/02/19 15:58 Pulse Ox 96 10/02/19 15:58 - Orders/Labs/Meds Orders: Active Orders 24 hr Category Date Time Status Admission Status [Patient Status] [ADT] Stat ADT 10/02/19 17:45 Active EKG Documentation Completion [RC] STAT Care 10/02/19 16:14 Active Notify Provider Consults [RC] ASDIRECTED Care 10/02/19 16:31 Active Consult to Physician [CONS] Stat Cons 10/02/19 16:31 Active CULTURE URINE [RM] Stat Lab 10/02/19 16:15 Received cefTRIAXone [Rocephin in Dextrose,Iso-Osm 1 GM/50 ML] 1 Med 10/02/19 17:23 Active gm Premix Bag 1 bag IV ONETIME Medication Orders Ceftriaxone Sodium/Dextrose 1 (gm/ Premix) 50 mls @ 100 mls/hr IV ONETIME ONE Stop: 10/02/19 17:52 Last Admin: 10/02/19 17:45 Dose: 100 mls/hr Labs: Laboratory Tests 10/02/19 10/02/19 10/02/19 Range/Units 16:05 16:05 16:15 WBC 11.97 H (4.0-11.0) K/uL RBC 4.23 L (4.30-5.90) M/uL Hgb 13.7 (12.0-16.0) g/dL Hct 40.0 (36.0-46.0) % MCV 94.6 (80.0-98.0) fL MCH 32.4 H (27.0-32.0) pg MCHC 34.3 (31.0-37.0) g/dL RDW Std Deviation 43.5 (28.0-62.0) fl RDW Coeff of Betty 13 (11.0-15.0) % Plt Count 250 (150-400) K/uL MPV 9.00 (7.40-12.00) fL Neut % (Auto) 72.8 (48.0-80.0) % Lymph % (Auto) 13.5 L (16.0-40.0) % [place] % (Auto) 13.1 (0.0-15.0) % Eos % (Auto) 0.3 (0.0-7.0) % Baso % (Auto) 0.3 (0.0-1.5) % Neut # (Auto) 8.7 H (1.4-5.7) K/uL Lymph # (Auto) 1.6 (0.6-2.4) K/uL [place] # (Auto) 1.6 H (0.0-0.8) K/uL Eos # (Auto) 0.0 (0.0-0.7) K/uL Baso # (Auto) 0.0 (0.0-0.1) K/uL Nucleated RBC % 0.0 /100WBC Nucleated RBCs # 0 K/uL Sodium 140 (136-145) mmol/L Potassium 3.7 (3.5-5.1) mmol/L Chloride 102 (98-107) mmol/L Carbon Dioxide 24.8 (21.0-32.0) mmol/L BUN 12 (7.0-18.0) mg/dL Creatinine 0.8 (0.6-1.0) mg/dL Est Cr Clr Drug Dosing 73.18 mL/min Estimated GFR (MDRD) > 60.0 ml/min Glucose 101 (74-106) mg/dL Calcium 9.1 (8.5-10.1) mg/dL Total Bilirubin 0.6 (0.2-1.0) mg/dL AST 14 L (15-37) IU/L ALT 19 (14-63) IU/L Alkaline Phosphatase 79 (46-116) U/L Troponin I < 0.050 (0.000-0.056) ng/mL Total Protein 7.4 (6.4-8.2) g/dL Albumin 3.6 (3.4-5.0) g/dL Globulin 3.8 (2.6-4.0) g/dL Albumin/Globulin Ratio 0.9 (0.9-1.6) Urine Color YELLOW Urine Appearance HAZY Urine pH 5.0 (5.0-8.0) Ur Specific [place] >= 1.030 (1.001-1.035) Urine Protein 30 H (NEGATIVE) mg/dL Urine Glucose (UA) NEGATIVE (NEGATIVE) mg/dL Urine Ketones 40 H (NEGATIVE) mg/dL Urine Occult Blood LARGE H (NEGATIVE) Urine Nitrite POSITIVE H (NEGATIVE) Urine Bilirubin NEGATIVE (NEGATIVE) Urine Urobilinogen 0.2 (<2.0) EU/dL Ur Leukocyte Esterase SMALL H (NEGATIVE) Urine RBC 10-15 (0-2/HPF) Urine WBC 25-30 (0-5/HPF) Ur Epithelial Cells FEW (NONE-FEW) Urine Bacteria 2+ H (NEGATIVE) Urine Mucus MODERATE (NONE-MOD) Meds: Medications Generic Name Dose Route Start Last Admin Trade Name Freq PRN Reason Stop Dose Admin Ceftriaxone Sodium/Dextrose 1 50 mls @ 100 mls/hr 10/02/19 17:23 10/02/19 17: 45 gm/ Premix IV 10/02/19 17:52 100 mls/hr ONETIME ONE Administration Departure - Departure Time of Disposition: 17:47 Disposition: Refer to Observation Clinical Impression: Weakness, History of multiple sclerosis Urinary tract infection Qualifiers: Urinary tract infection type: acute cystitis Hematuria presence: with hematuria Qualified Code(s): N30.01 - Acute cystitis with hematuria - Discharge Information Referrals: Lizette Rea MD [Primary Care Provider] - Sepsis Event Note - Focused Exam Vital Signs: Vital Signs Temp Pulse Resp BP Pulse Ox 10/02/19 15:58 99 F 99 18 137/81 96 Date Exam was Performed: 10/02/19 Time Exam was Performed: 17:46 - My Orders Last 24 Hours: My Active Orders 10/02/19 16:14 EKG Documentation Completion [RC] STAT 10/02/19 16:15 CULTURE URINE [RM] Stat 10/02/19 16:31 Notify Provider Consults [RC] ASDIRECTED Consult to Physician [CONS] Stat 10/02/19 17:23 cefTRIAXone [Rocephin in Dextrose,Iso-Osm 1 GM/50 ML] 1 gm Premix Bag 1 bag IV ONETIME 10/02/19 17:45 Admission Status [Patient Status] [ADT] Stat - Assessment/Plan Last 24 Hours: My Active Orders 10/02/19 16:14 EKG Documentation Completion [RC] STAT 10/02/19 16:15 CULTURE URINE [RM] Stat 10/02/19 16:31 Notify Provider Consults [RC] ASDIRECTED Consult to Physician [CONS] Stat 10/02/19 17:23 cefTRIAXone [Rocephin in Dextrose,Iso-Osm 1 GM/50 ML] 1 gm Premix Bag 1 bag IV ONETIME 10/02/19 17:45 Admission Status [Patient Status] [ADT] Stat
--- NOTE | 2019-10-02 16:58 | PCM.CONS ---
H&P History of Present Illness - General Date of Service: 10/02/19 Source of Information: Patient - History of Present Illness Initial Comments - Free Text/Narative: 53 year old woman with a history of multiple sclerosis presenting with worsening lower limb weakness She has had steadily worsening weakness in her legs and left upper limb since last clinic visit in March. On Tuesday, her lower limbs "seized". Since then, she has not been able to walk or lift her legs to get into bed. Last week, she was still working 40 hours / week. History of MS Starting Sep, 2016, she developed numerous symptoms including constipation, ankle weakness that fluctuated, urinary retention and incontinence. She developed paresthesias in her hand abruptly in February,. She had episodes of lower limb paralysis, imbalance, unilateral numbness. MRI brain, C and T spine with contrast completed 07/04/2017. Extensive scattered T2 hyperintense lesions are seen throughout the cervical and thoracic cord. Labs 07/15/2017 ? Aquaporin-4 antibody was negative. CSF 07/15/2017 ? WBC 4, RBC 0, protein 35, VDRL NR IgG index elevated at 1.4. 4 oligoclonal bands were observed Rebif started in July 2017. By August, she had had no improvement in ongoing symptoms, but she had stopped having attacks. She also started a supplement program aimed to clear parasites from her system. By December 2017, she was doing much better. Her brain fog and walking had improved. She stopped Rebif around November 2018 and declined DMD. lower back Pain Score (Numeric/FACES): 7 - Related Data Allergies/Adverse Reactions: Allergies Allergy/AdvReac Type Severity Reaction Status Date / Time No Known Allergies Allergy Verified 10/02/19 16:00 Home Medications: Home Meds Cannabidiol (Cbd) Extract [CBD Oil] 1 dose PO BID 10/02/19 [History] Past Medical History - Past Health History Medical/Surgical History: Denies Medical/Surgical History HEENT History: Reports: Impaired Vision, Other (See Below) Other HEENT History: wears glasses Cardiovascular History: Reports: Hypertension Other Cardiovascular History: no longer takes meds Respiratory History: Reports: COPD Other Respiratory History: no longer uses inhalers/nebulizers Gastrointestinal History: Reports: Chronic Constipation Genitourinary History: Reports: None 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: Musculoskeletal History: Reports: Fracture Other Musculoskeletal History: hx of fx arm, leg clavicle Neurological History: Reports: MS Psychiatric History: Reports: None Endocrine/Metabolic History: Reports: None Hematologic History: Reports: Anemia Immunologic History: Reports: None Oncologic (Cancer) History: Reports: None Dermatologic History: Reports: None - Infectious Disease History Infectious Disease History: Reports: Chicken Pox - Past Surgical History GI Surgical History: Reports: None Female Surgical History: Reports: Other (See Below) Other Female Surgeries/Procedures: Laparoscopy, uterine myomectomy Musculoskeletal Surgical History: Reports: None Social & Family History - Family History Family Medical History: Noncontributory - Tobacco Use Smoking Status *Q: Current Every Day Smoker Years of Tobacco use: 30 Packs/Tins Daily: 0.1 - Caffeine Use Caffeine Use: Reports: None - Recreational Drug Use Recreational Drug Use: No H&P Review of Systems - Review of Systems: Review Of Systems: See Below Neurological: Reports: Numbness, Difficulty Walking, Weakness Exam - Exam Exam: See Below - Vital Signs Vital Signs: Last Vital Signs Temp 37.2 C 10/02/19 15:58 Pulse 99 10/02/19 15:58 Resp 18 10/02/19 15:58 BP 137/81 10/02/19 15:58 Pulse Ox 96 10/02/19 15:58 Weight: 63.503 kg - Exam Physical Exam Comments:: Cranial Nerves: Pupils equally round and reactive to light. Visual carrillo full to confrontation. Gaze conjugate, EOMI. Sensation intact and symmetric to light touch. Facial strength is full and symmetric. Palate elevates symmetrically. Normal shrug bilaterally. Tongue protrudes midline Motor: Increased tone in lower limbs. Bilateral hip flexors 4/5, knee flexors 3/ 5, left ankle dorsiflexor 3/5, right ankle dorsiflexor 4+. e 4+/5. Sensation: Sensation is intact to light touch. Deep tendon reflexes: Plantar responses are extensor on the left. - Patient Data Lab Results Last 24 hrs: Laboratory Results - last 24 hr 10/02/19 10/02/19 Range/Units 16:05 16:15 WBC 11.97 H (4.0-11.0) K/uL RBC 4.23 L (4.30-5.90) M/uL Hgb 13.7 (12.0-16.0) g/dL Hct 40.0 (36.0-46.0) % MCV 94.6 (80.0-98.0) fL MCH 32.4 H (27.0-32.0) pg MCHC 34.3 (31.0-37.0) g/dL RDW Std Deviation 43.5 (28.0-62.0) fl RDW Coeff of Betty 13 (11.0-15.0) % Plt Count 250 (150-400) K/uL MPV 9.00 (7.40-12.00) fL Neut % (Auto) 72.8 (48.0-80.0) % Lymph % (Auto) 13.5 L (16.0-40.0) % [place] % (Auto) 13.1 (0.0-15.0) % Eos % (Auto) 0.3 (0.0-7.0) % Baso % (Auto) 0.3 (0.0-1.5) % Neut # (Auto) 8.7 H (1.4-5.7) K/uL Lymph # (Auto) 1.6 (0.6-2.4) K/uL [place] # (Auto) 1.6 H (0.0-0.8) K/uL Eos # (Auto) 0.0 (0.0-0.7) K/uL Baso # (Auto) 0.0 (0.0-0.1) K/uL Nucleated RBC % 0.0 /100WBC Nucleated RBCs # 0 K/uL Urine Color YELLOW Urine Appearance HAZY Urine pH 5.0 (5.0-8.0) Ur Specific [place] >= 1.030 (1.001-1.035) Urine Protein 30 H (NEGATIVE) mg/dL Urine Glucose (UA) NEGATIVE (NEGATIVE) mg/dL Urine Ketones 40 H (NEGATIVE) mg/dL Urine Occult Blood LARGE H (NEGATIVE) Urine Nitrite POSITIVE H (NEGATIVE) Urine Bilirubin NEGATIVE (NEGATIVE) Urine Urobilinogen 0.2 (<2.0) EU/dL Ur Leukocyte Esterase SMALL H (NEGATIVE) Urine RBC 10-15 (0-2/HPF) Urine WBC 25-30 (0-5/HPF) Ur Epithelial Cells FEW (NONE-FEW) Urine Bacteria 2+ H (NEGATIVE) Urine Mucus MODERATE (NONE-MOD) Result Diagrams: 10/02/19 16:05 Sepsis Event Note - Evaluation Sepsis Screening Result: No Definite Risk - Focused Exam Vital Signs: Vital Signs Temp Pulse Resp BP Pulse Ox 10/02/19 15:58 37.2 C 99 18 137/81 96 Date Exam was Performed: 10/02/19 Time Exam was Performed: 16:50 Consult PN Assessment/Plan Procedures: Procedures ANGIOTENSIN I ENZYME TEST (07/05/17) ASSAY IGA/IGD/IGG/IGM EACH (07/17/17) ASSAY OF FERRITIN (03/22/17) ASSAY OF FOLIC ACID RBC (03/22/17) ASSAY OF FOLIC ACID SERUM (03/22/17) ASSAY OF FREE THYROXINE (05/11/17) ASSAY OF PROTEIN OTHER (07/17/17) ASSAY OF SERUM ALBUMIN (07/17/17) ASSAY OF TROPONIN QUANT (02/13/18) ASSAY OF VITAMIN E (07/05/17) ASSAY THYROID STIM HORMONE (07/13/18) ASSAY TRIIODOTHYRONINE (T3) (05/11/17) BODY FLUID CELL COUNT (07/17/17) C-REACTIVE PROTEIN (02/13/18) CARDIOVASCULAR STRESS TEST (08/04/18) CHEST X-RAY 2VW FRONTAL&LATL (01/30/14) COLONOSCOPY AND BIOPSY (04/21/17) COMPLETE CBC W/AUTO DIFF WBC (02/22/19) COMPREHEN METABOLIC PANEL (02/22/19) CT ABD & PELVIS W/O CONTRAST (03/19/17) ELECTROCARDIOGRAM TRACING (07/13/18) EMERGENCY DEPT VISIT (02/13/18) EMERGENCY DEPT VISIT (12/04/17) EMERGENCY DEPT VISIT (03/19/17) EMERGENCY DEPT VISIT (11/10/15) EVALUATION OF WHEEZING (02/05/14) GLUCOSE OTHER FLUID (07/17/17) HEPATITIS C AB TEST (09/20/18) HIV-1 AG W/HIV-1 & HIV-2 AB (09/20/18) HPV HIGH-RISK TYPES (10/11/18) HYDRATION IV INFUSION INIT (02/13/18) IMMUNIZATION ADMIN (11/10/15) IMMUNOASSAY NONANTIBODY (07/17/17) IRON BINDING TEST (03/22/17) LIPID PANEL (09/20/18) LYME DISEASE ANTIBODY (07/05/17) METABOLIC PANEL TOTAL CA (03/22/17) MRI BRAIN STEM W/O & W/DYE (03/07/19) MRI BRAIN STEM W/O DYE (06/02/17) MRI CHEST SPINE W/O & W/DYE (03/14/19) MRI LUMBAR SPINE W/O DYE (05/20/17) MRI NECK SPINE W/O & W/DYE (03/14/19) OLIGOCLONAL BANDS (07/17/17) OTHER SOURCE ALBUMIN DANNI EA (07/17/17) PT EVAL MOD COMPLEX 30 MIN (02/14/19) RBC SED RATE AUTOMATED (02/13/18) ROUTINE VENIPUNCTURE (02/22/19) SYPHILIS TEST NON-TREP QUAL (07/17/17) TDAP VACCINE 7 YRS/> IM (11/10/15) THER/PROPH/DIAG IV INF INIT (12/31/18) URINALYSIS AUTO W/SCOPE (07/25/17) URINE CULTURE/COLONY COUNT (05/11/17) URINE TEST (04/21/17) VITAMIN B-12 (07/05/17) VITAMIN D 25 HYDROXY (02/22/19) X-RAY EXAM CHEST 1 VIEW (02/13/18) X-RAY EXAM CHEST 2 VIEWS (07/13/18) X-RAY EXAM RIBS UNI 2 VIEWS (12/04/17) Problem List Initiated/Reviewed/Updated: Yes My Orders Last 24 Hours: Multiple sclerosis, suspected exacerbation. Presentation indicates relapse, but her symptoms have fluctuated in an usual pattern in the past, so I recommend MRIs prior to considering steroids. She is currently unable to take care of herself right now, so I recommend inpatient evaluation Labs work and XRs are pending to eval for mimics Rec: MRI brain, C and T spine with and without contrast, if positive for active lesion, start Solumedrol 1000 mg IV 3-5 days. PT evaluation
[2019-10-02 17:14] LABS: BLOOD UREA NITROGEN,BUN 12 mg/dL (7.0-18.0); CARBON DIOXIDE,CO2 24.8 mmol/L (21.0-32.0); CHLORIDE,CL 102 mmol/L (98-107); GLUCOSE RANDOM 101 mg/dL (74-106); POTASSIUM,K 3.7 mmol/L (3.5-5.1); SODIUM,NA 140 mmol/L (136-145)
[2019-10-02] MEDS ORDERED: cefTRIAXone 1 GM in Premix Bag 1 BAG IV ONE (17:23)
--- NOTE | 2019-10-02 17:35 | CT ---
CT lumbar spine Technique: Multiple axial sections were obtained from above the T12-L1 disc inferiorly through the L5-S1 disc. Reconstructed sagittal and coronal images were reviewed. Findings: T12-L1: Small Schmorl's node deformity seen anteriorly within the superior endplate of L1. Slight anterior and lateral disc bulging is seen. Posterior disc maintains a concave margin. No central canal stenosis or neural foraminal stenosis is seen. L1-2: Posterior disc is preserved. No central canal stenosis or neural foraminal stenosis is seen. L2-3: Posterior disc is preserved. No central canal stenosis or neural foraminal stenosis is seen. L3-4: Minimal circumferential disc bulge is seen. Posterior disc maintains a concave margin. No central canal stenosis or neural foraminal stenosis is seen. L4-5: Minimal circumferential disc bulge is seen. Posterior disc medians concave margin. No central canal stenosis or neural foraminal stenosis seen. L5-S1: Physiologic disc bulge seen posteriorly. Neural foramina are patent where the nerve roots exit. No central canal stenosis is seen. Minimal scattered endplate osteophytes are seen. No fracture or abnormal subluxation is seen. Impression: 1. Minimal degenerative change. Diagnostic code #2 This report was dictated in [place] Standard Time
--- NOTE | 2019-10-02 17:40 | CR ---
Chest: Frontal view of the chest was obtained. Comparison: Prior chest x-ray of 07/13/18. Heart size and mediastinum are normal. Nodule is identified within the left midlung which is stable from previous exam. Lungs otherwise are clear. Bony structures are grossly intact. Impression: 1. Findings as noted above. Nothing acute is appreciated. Diagnostic code #2 This report was dictated in [place] Standard Time
--- NOTE | 2019-10-02 18:24 | PCM.HP.2 ---
H&P History of Present Illness - General Date of Service: 10/02/19 Admit Problem/Dx: Admission Diagnosis/Problem Admission Diagnosis/Problem Weakness - History of Present Illness Initial Comments - Free Text/Narative: The patient is a 53 year old female with PMH of MS, COPD, and HTN who presented to the ER concerned about MS flare. Reports Tuesday night, she developed lower back pain and her legs seized up on her. She then became more weak in her lower extremities and she began to develop left upper extremity weakness. She was treated with Rebif in the past but hasn't been on anything for MS since November 2018. Was managing her symptoms with CBD oil. Reports chronic constipation and trouble fulling emptying her bladder. Thought she had a urinary tract infection coming on because her urine was cloudy so she started taking parsley. Reports hx of COPD and HTN but doesn't take any medications, again controls these with all naturally with herbs. Quit smoking today. In the ER, found to have slight white count of 11.9, CMP wnl, negative troponin , UA with signs of infection. Lumbar CT showed degenerative changes and CXR showed no acute process. Was started on Rocephin for UTI. Dr. Majano, neurology, was consulted and evaluated patient in ER. lower back Pain Score (Numeric/FACES): 7 - Related Data Allergies/Adverse Reactions: Allergies Allergy/AdvReac Type Severity Reaction Status Date / Time No Known Allergies Allergy Verified 10/02/19 16:00 Home Medications: Home Meds Cannabidiol (Cbd) Extract [CBD Oil] 1 dose PO BID 10/02/19 [History] Past Medical History - Past Health History Medical/Surgical History: Denies Medical/Surgical History HEENT History: Reports: Impaired Vision, Other (See Below) Other HEENT History: wears glasses Cardiovascular History: Reports: Hypertension Other Cardiovascular History: no longer takes meds Respiratory History: Reports: COPD Other Respiratory History: no longer uses inhalers/nebulizers Gastrointestinal History: Reports: Chronic Constipation Genitourinary History: Reports: None 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: Musculoskeletal History: Reports: Fracture Other Musculoskeletal History: hx of fx arm, leg clavicle Neurological History: Reports: MS Psychiatric History: Reports: None Endocrine/Metabolic History: Reports: None Hematologic History: Reports: Anemia Immunologic History: Reports: None Oncologic (Cancer) History: Reports: None Dermatologic History: Reports: None - Infectious Disease History Infectious Disease History: Reports: Chicken Pox - Past Surgical History GI Surgical History: Reports: None Female Surgical History: Reports: Other (See Below) Other Female Surgeries/Procedures: Laparoscopy, uterine myomectomy Musculoskeletal Surgical History: Reports: None Social & Family History - Family History Family Medical History: Noncontributory - Tobacco Use Smoking Status *Q: Former Smoker Other Tobacco Use Within Last Twelve Months: Reports quit today Years of Tobacco use: 30 Packs/Tins Daily: 0.1 - Caffeine Use Caffeine Use: Reports: None - Recreational Drug Use Recreational Drug Use: No H&P Review of Systems - Review of Systems: Review Of Systems: See Below General: Reports: Weakness, Decreased Appetite. Denies: Fever, Chills HEENT: Reports: No Symptoms Pulmonary: Reports: No Symptoms Cardiovascular: Reports: No Symptoms Gastrointestinal: Reports: No Symptoms Genitourinary: Reports: Retention Musculoskeletal: Reports: Back Pain, Muscle Stiffness Skin: Reports: No Symptoms Psychiatric: Reports: No Symptoms Neurological: Reports: Difficulty Walking, Weakness Hematologic/Lymphatic: Reports: No Symptoms Immunologic: Reports: No Symptoms Exam - Exam Exam: See Below - Vital Signs Vital Signs: Last Vital Signs Temp 99 F 10/02/19 15:58 Pulse 98 10/02/19 17:52 Resp 16 10/02/19 17:52 BP 146/90 H 10/02/19 17:52 Pulse Ox 98 10/02/19 17:52 Weight: 63.503 kg - Exam General: Alert, Oriented, Cooperative HEENT: Conjunctiva Clear, EOMI, Mucosa Moist & [place], Posterior Pharynx Clear, Pupils Equal, Pupils Reactive Lungs: Clear to Auscultation, Normal Respiratory Effort Cardiovascular: Regular Rate, Regular Rhythm GI/Abdominal Exam: Normal Bowel Sounds, Soft, Non-Tender, No Distention Extremities: No Pedal Edema Skin: Warm, Dry, Intact Neuro Extensive - Motor, Sensory, Reflexes: CN II-XII Intact, Other (decreased strength left upper extremity and right lower extremity). No: Tongue Deviation (L), Tongue Deviation (R), Dysarthria, Facial palsy (L), Facial Palsy (R) Psychiatric: Alert, Normal Affect, Normal Mood - Patient Data Lab Results Last 24 hrs: Laboratory Results - last 24 hr 10/02/19 10/02/19 10/02/19 Range/Units 16:05 16:05 16:15 WBC 11.97 H (4.0-11.0) K/uL RBC 4.23 L (4.30-5.90) M/uL Hgb 13.7 (12.0-16.0) g/dL Hct 40.0 (36.0-46.0) % MCV 94.6 (80.0-98.0) fL MCH 32.4 H (27.0-32.0) pg MCHC 34.3 (31.0-37.0) g/dL RDW Std Deviation 43.5 (28.0-62.0) fl RDW Coeff of Betty 13 (11.0-15.0) % Plt Count 250 (150-400) K/uL MPV 9.00 (7.40-12.00) fL Neut % (Auto) 72.8 (48.0-80.0) % Lymph % (Auto) 13.5 L (16.0-40.0) % [place] % (Auto) 13.1 (0.0-15.0) % Eos % (Auto) 0.3 (0.0-7.0) % Baso % (Auto) 0.3 (0.0-1.5) % Neut # (Auto) 8.7 H (1.4-5.7) K/uL Lymph # (Auto) 1.6 (0.6-2.4) K/uL [place] # (Auto) 1.6 H (0.0-0.8) K/uL Eos # (Auto) 0.0 (0.0-0.7) K/uL Baso # (Auto) 0.0 (0.0-0.1) K/uL Nucleated RBC % 0.0 /100WBC Nucleated RBCs # 0 K/uL Sodium 140 (136-145) mmol/L Potassium 3.7 (3.5-5.1) mmol/L Chloride 102 (98-107) mmol/L Carbon Dioxide 24.8 (21.0-32.0) mmol/L BUN 12 (7.0-18.0) mg/dL Creatinine 0.8 (0.6-1.0) mg/dL Est Cr Clr Drug Dosing 73.18 mL/min Estimated GFR (MDRD) > 60.0 ml/min Glucose 101 (74-106) mg/dL Calcium 9.1 (8.5-10.1) mg/dL Total Bilirubin 0.6 (0.2-1.0) mg/dL AST 14 L (15-37) IU/L ALT 19 (14-63) IU/L Alkaline Phosphatase 79 (46-116) U/L Troponin I < 0.050 (0.000-0.056) ng/mL Total Protein 7.4 (6.4-8.2) g/dL Albumin 3.6 (3.4-5.0) g/dL Globulin 3.8 (2.6-4.0) g/dL Albumin/Globulin Ratio 0.9 (0.9-1.6) Urine Color YELLOW Urine Appearance HAZY Urine pH 5.0 (5.0-8.0) Ur Specific [place] >= 1.030 (1.001-1.035) Urine Protein 30 H (NEGATIVE) mg/dL Urine Glucose (UA) NEGATIVE (NEGATIVE) mg/dL Urine Ketones 40 H (NEGATIVE) mg/dL Urine Occult Blood LARGE H (NEGATIVE) Urine Nitrite POSITIVE H (NEGATIVE) Urine Bilirubin NEGATIVE (NEGATIVE) Urine Urobilinogen 0.2 (<2.0) EU/dL Ur Leukocyte Esterase SMALL H (NEGATIVE) Urine RBC 10-15 (0-2/HPF) Urine WBC 25-30 (0-5/HPF) Ur Epithelial Cells FEW (NONE-FEW) Urine Bacteria 2+ H (NEGATIVE) Urine Mucus MODERATE (NONE-MOD) Result Diagrams: 10/02/19 16:05 10/02/19 16:05 Sepsis Event Note - Evaluation Sepsis Screening Result: No Definite Risk - Focused Exam Vital Signs: Vital Signs Temp Pulse Resp BP Pulse Ox 10/02/19 17:52 98 16 146/90 H 98 10/02/19 15:58 99 F 99 18 137/81 96 Date Exam was Performed: 10/02/19 Time Exam was Performed: 18:35 Problem List Initiated/Reviewed/Updated: Yes Orders Last 24hrs: Active Orders 24 hr Category Date Time Status Admission Status [Patient Status] [ADT] Stat ADT 10/02/19 17:45 Active EKG Documentation Completion [RC] STAT Care 10/02/19 16:14 Active Notify Provider Consults [RC] ASDIRECTED Care 10/02/19 16:31 Active Consult to Physician [CONS] Stat Cons 10/02/19 16:31 Active CULTURE URINE [RM] Stat Lab 10/02/19 16:15 Received Assessment/Plan Comment:: 1. Admit for observation 2. Code status- Full 3. Vitals per routine 4. I/Os per routine 5. Diet- regular 6. DVT with Lovenox 7. Weakness- lower extremities and left upper extremity- concern for MS flare- Dr. Majano, neurology, evaluated patient and recommenced MRI with and without contrast of brain, C-spine, and T-spine. If imaging positive for flare , start solumedrol 1000mg IV for 3-5 days. Will order PT. 8. UTI- continue Rocephin, UC pending.
[2019-10-02] MEDS ORDERED: Enoxaparin 40 MG/0.4 ML Syringe SUBCUT SCH (18:30)
[2019-10-02] MEDS ORDERED: Ondansetron 4 MG/2 ML SDV IVPUSH PRN (18:30)
[2019-10-02] MEDS: Acetaminophen 325 MG Tab PO PRN (21:07)
[2019-10-03] MEDS ORDERED: Cyclobenzaprine 5 MG Tab PO PRN (04:16)
[2019-10-03] MEDS: Acetaminophen 325 MG Tab PO PRN (04:29)
[2019-10-03 06:39] LABS: BLOOD UREA NITROGEN,BUN 11 mg/dL (7.0-18.0); CARBON DIOXIDE,CO2 26.2 mmol/L (21.0-32.0); CHLORIDE,CL 104 mmol/L (98-107); GLUCOSE RANDOM 95 mg/dL (74-106); POTASSIUM,K 3.6 mmol/L (3.5-5.1); SODIUM,NA 139 mmol/L (136-145)
--- NOTE | 2019-10-03 08:20 | PCM.PN ---
- General Info Date of Service: 10/03/19 Subjective Update: Reports back and legs seized up again last night, was given Flexeril and it made it much better. Eating and drinking without issue. Reports overall feel better. - Review of Systems General: Reports: No Symptoms HEENT: Reports: No Symptoms Pulmonary: Reports: No Symptoms Cardiovascular: Reports: No Symptoms Gastrointestinal: Reports: No Symptoms Genitourinary: Reports: No Symptoms Musculoskeletal: Reports: Back Pain, Leg Pain Skin: Reports: No Symptoms Neurological: Reports: No Symptoms Psychiatric: Reports: No Symptoms - Patient Data Vitals - Most Recent: Last Vital Signs Temp 97.2 F 10/03/19 04:00 Pulse 86 10/03/19 04:00 Resp 20 10/03/19 04:00 BP 164/85 H 10/03/19 04:00 Pulse Ox 93 L 10/03/19 04:00 Weight - Most Recent: 63.503 kg I&O - Last 24 Hours: Intake & Output 10/02/19 10/03/19 10/03/19 22:59 06:59 14:59 Intake Total 750 Output Total 500 Balance 250 Lab Results Last 24 Hours: Laboratory Results - last 24 hr 10/02/19 10/02/19 10/02/19 Range/Units 16:05 16:05 16:15 WBC 11.97 H (4.0-11.0) K/uL RBC 4.23 L (4.30-5.90) M/uL Hgb 13.7 (12.0-16.0) g/dL Hct 40.0 (36.0-46.0) % MCV 94.6 (80.0-98.0) fL MCH 32.4 H (27.0-32.0) pg MCHC 34.3 (31.0-37.0) g/dL RDW Std Deviation 43.5 (28.0-62.0) fl RDW Coeff of Betty 13 (11.0-15.0) % Plt Count 250 (150-400) K/uL MPV 9.00 (7.40-12.00) fL Neut % (Auto) 72.8 (48.0-80.0) % Lymph % (Auto) 13.5 L (16.0-40.0) % [place] % (Auto) 13.1 (0.0-15.0) % Eos % (Auto) 0.3 (0.0-7.0) % Baso % (Auto) 0.3 (0.0-1.5) % Neut # (Auto) 8.7 H (1.4-5.7) K/uL Lymph # (Auto) 1.6 (0.6-2.4) K/uL [place] # (Auto) 1.6 H (0.0-0.8) K/uL Eos # (Auto) 0.0 (0.0-0.7) K/uL Baso # (Auto) 0.0 (0.0-0.1) K/uL Nucleated RBC % 0.0 /100WBC Nucleated RBCs # 0 K/uL Sodium 140 (136-145) mmol/L Potassium 3.7 (3.5-5.1) mmol/L Chloride 102 (98-107) mmol/L Carbon Dioxide 24.8 (21.0-32.0) mmol/L BUN 12 (7.0-18.0) mg/dL Creatinine 0.8 (0.6-1.0) mg/dL Est Cr Clr Drug Dosing 73.18 mL/min Estimated GFR (MDRD) > 60.0 ml/min Glucose 101 (74-106) mg/dL Calcium 9.1 (8.5-10.1) mg/dL Total Bilirubin 0.6 (0.2-1.0) mg/dL AST 14 L (15-37) IU/L ALT 19 (14-63) IU/L Alkaline Phosphatase 79 (46-116) U/L Troponin I < 0.050 (0.000-0.056) ng/mL Total Protein 7.4 (6.4-8.2) g/dL Albumin 3.6 (3.4-5.0) g/dL Globulin 3.8 (2.6-4.0) g/dL Albumin/Globulin Ratio 0.9 (0.9-1.6) Urine Color YELLOW Urine Appearance HAZY Urine pH 5.0 (5.0-8.0) Ur Specific [place] >= 1.030 (1.001-1.035) Urine Protein 30 H (NEGATIVE) mg/dL Urine Glucose (UA) NEGATIVE (NEGATIVE) mg/dL Urine Ketones 40 H (NEGATIVE) mg/dL Urine Occult Blood LARGE H (NEGATIVE) Urine Nitrite POSITIVE H (NEGATIVE) Urine Bilirubin NEGATIVE (NEGATIVE) Urine Urobilinogen 0.2 (<2.0) EU/dL Ur Leukocyte Esterase SMALL H (NEGATIVE) Urine RBC 10-15 (0-2/HPF) Urine WBC 25-30 (0-5/HPF) Ur Epithelial Cells FEW (NONE-FEW) Urine Bacteria 2+ H (NEGATIVE) Urine Mucus MODERATE (NONE-MOD) 10/03/19 10/03/19 Range/Units 05:47 05:47 WBC 10.53 (4.0-11.0) K/uL RBC 4.01 L (4.30-5.90) M/uL Hgb 12.7 (12.0-16.0) g/dL Hct 37.8 (36.0-46.0) % MCV 94.3 (80.0-98.0) fL MCH 31.7 (27.0-32.0) pg MCHC 33.6 (31.0-37.0) g/dL RDW Std Deviation 42.4 (28.0-62.0) fl RDW Coeff of Betty 12 (11.0-15.0) % Plt Count 230 (150-400) K/uL MPV 8.90 (7.40-12.00) fL Neut % (Auto) 70.4 (48.0-80.0) % Lymph % (Auto) 15.6 L (16.0-40.0) % [place] % (Auto) 12.9 (0.0-15.0) % Eos % (Auto) 0.7 (0.0-7.0) % Baso % (Auto) 0.4 (0.0-1.5) % Neut # (Auto) 7.4 H (1.4-5.7) K/uL Lymph # (Auto) 1.6 (0.6-2.4) K/uL [place] # (Auto) 1.4 H (0.0-0.8) K/uL Eos # (Auto) 0.1 (0.0-0.7) K/uL Baso # (Auto) 0.0 (0.0-0.1) K/uL Nucleated RBC % 0.0 /100WBC Nucleated RBCs # 0 K/uL Sodium 139 (136-145) mmol/L Potassium 3.6 (3.5-5.1) mmol/L Chloride 104 (98-107) mmol/L Carbon Dioxide 26.2 (21.0-32.0) mmol/L BUN 11 (7.0-18.0) mg/dL Creatinine 0.8 (0.6-1.0) mg/dL Est Cr Clr Drug Dosing 73.18 mL/min Estimated GFR (MDRD) > 60.0 ml/min Glucose 95 (74-106) mg/dL Calcium 8.4 L (8.5-10.1) mg/dL Total Bilirubin (0.2-1.0) mg/dL AST (15-37) IU/L ALT (14-63) IU/L Alkaline Phosphatase (46-116) U/L Troponin I (0.000-0.056) ng/mL Total Protein (6.4-8.2) g/dL Albumin (3.4-5.0) g/dL Globulin (2.6-4.0) g/dL Albumin/Globulin Ratio (0.9-1.6) Urine Color Urine Appearance Urine pH (5.0-8.0) Ur Specific [place] (1.001-1.035) Urine Protein (NEGATIVE) mg/dL Urine Glucose (UA) (NEGATIVE) mg/dL Urine Ketones (NEGATIVE) mg/dL Urine Occult Blood (NEGATIVE) Urine Nitrite (NEGATIVE) Urine Bilirubin (NEGATIVE) Urine Urobilinogen (<2.0) EU/dL Ur Leukocyte Esterase (NEGATIVE) Urine RBC (0-2/HPF) Urine WBC (0-5/HPF) Ur Epithelial Cells (NONE-FEW) Urine Bacteria (NEGATIVE) Urine Mucus (NONE-MOD) Med Orders - Current: Current Medications Acetaminophen (Tylenol) 650 mg PO Q4H PRN PRN Reason: Pain/Fever Last Admin: 10/03/19 04:29 Dose: 650 mg Cyclobenzaprine HCl (Flexeril) 5 mg PO BID PRN PRN Reason: muscle spasms Last Admin: 10/03/19 04:24 Dose: 5 mg Enoxaparin Sodium (Lovenox) 40 mg SUBCUT Q24H [facility] Last Admin: 10/02/19 19:29 Dose: 40 mg Ceftriaxone Sodium/Dextrose 1 (gm/ Premix) 50 mls @ 100 mls/hr IV Q24H SHARRI Ondansetron HCl (Zofran) 4 mg IVPUSH Q4H PRN PRN Reason: Nausea/Vomiting Last Admin: 10/03/19 04:30 Dose: 4 mg Discontinued Medications Ceftriaxone Sodium/Dextrose 1 (gm/ Premix) 50 mls @ 100 mls/hr IV ONETIME ONE Stop: 10/02/19 17:52 Last Admin: 10/02/19 17:45 Dose: 100 mls/hr - Exam General: Alert, Oriented, Cooperative Lungs: Clear to Auscultation, Normal Respiratory Effort Cardiovascular: Regular Rate, Regular Rhythm GI/Abdominal Exam: Normal Bowel Sounds, Soft, Non-Tender, No Distention Extremities: No Pedal Edema Skin: Warm, Dry, Intact Neurological: Other (strength improved) Psy/Mental Status: Alert, Normal Affect, Normal Mood Sepsis Event Note - Evaluation Sepsis Screening Result: No Definite Risk - Focused Exam Vital Signs: Vital Signs Temp Pulse Resp BP Pulse Ox 10/03/19 04:00 97.2 F 86 20 164/85 H 93 L 10/03/19 00:15 97.4 F 77 18 116/73 95 Date Exam was Performed: 10/03/19 Time Exam was Performed: 12:07 - Problem List Review Problem List Initiated/Reviewed/Updated: Yes - My Orders Last 24 Hours: My Active Orders 10/02/19 18:30 Intake and Output [RC] Q12H Vital Signs [RC] Q4H PT Evaluation and Treatment [CONS] Routine Acetaminophen [Tylenol] 650 mg PO Q4H PRN Enoxaparin [Lovenox] 40 mg SUBCUT Q24H Ondansetron [Zofran] 4 mg IVPUSH Q4H PRN Resuscitation Status Routine 10/02/19 18:34 Brain w wo Cont [MR] Stat Cervical Spine Comp w wo Cont [MR] Stat Thoracic Spine Comp w wo Cont [MR] Stat 10/03/19 18:30 cefTRIAXone [Rocephin in Dextrose,Iso-Osm 1 GM/50 ML] 1 gm Premix Bag 1 bag IV Q24H 10/03/19 Breakfast Regular Diet [DIET] - Plan Plan:: 1. Weakness- lower extremities and left upper extremity- concern for MS flare- Dr. Majano, neurology, evaluated patient and recommended MRI with and without contrast of brain, C-spine, and T-spine which will be done today. If imaging positive for flare, start solumedrol 1000mg IV for 3-5 days. PT was able to get her up and walk but patient thinks PT makes her worse and isn't keen about continuing it. 2. UTI- continue Rocephin, UC pending, white count resolved.
[2019-10-03] MEDS ORDERED: Gadobenate Dimeglumine 529 MG/ML 20 ML SDV IVPUSH STA (12:49)
--- NOTE | 2019-10-03 14:20 | MR ---
MRI cervical spine Technique: FFE and T2 weighted axial images were obtained as well as T1 fat suppressed postcontrast axial images from above the C2-3 disc inferiorly through this T1-2 disc. T1, T2, fat suppressed inversion recovery sagittal and T1 fat suppressed sagittal images were obtained. Comparison: Prior MRI cervical spine study of 03/14/19. Findings: Motion artifact is noted on multiple sequences. Very slight posterior disc bulging is seen at C3-4 through C5-6. No central canal stenosis is seen. Scattered areas of increased signal are noted on this STIR sequence throughout the cervical spine. This findings is felt to be fairly stable from prior MRI. No central canal stenosis or discrete neural foraminal stenosis is seen. No abnormal enhancement is seen within the cervical cord Impression: 1. Increased signal within the cervical cord on the STIR sequence. Findings are fairly stable from prior MRI cervical spine study. 2. Mild diffuse disc bulging. No central canal stenosis or definite neural foraminal stenosis is seen. 3. Details are slightly limited due to motion. Diagnostic code #3 This report was dictated in [place] Standard Time
--- NOTE | 2019-10-03 14:20 | MR ---
MRI thoracic spine Technique: T1, T2 and fat suppressed inversion recovery STIR images. T1 fat-suppressed postcontrast sagittal; T2 and postcontrast T1 fat-suppressed axial images were obtained of the thoracic spine. Comparison: Prior MRI thoracic spine study of 03/14/19. Findings: Scattered areas of increased signal throughout the thoracic cord is seen. Findings are felt to be fairly stable from prior exam. No abnormal enhancement is seen within the thoracic spine. Mild disc space narrowing is noted within the mid thoracic spine. No significant disc bulge or disc herniation is seen. No central canal stenosis or neural foraminal stenosis is seen. Impression: 1. Stable degenerative change. 2. Scattered areas of increased signal within the thoracic cord which are felt to be fairly stable. 3. No areas of abnormal enhancement are seen. Diagnostic code #2 This report was dictated in [place] Standard Time
--- NOTE | 2019-10-03 14:20 | MR ---
MRI brain Technique: T1 and FLAIR sagittal; T1 coronal; T1, T2, FLAIR and diffusion axial; postcontrast T1 axial, coronal and sagittal images were obtained to the brain. Comparison: Previous MRI brain of 03/07/19 is available. Findings: Motion artifact noted on multiple sequences. Ventricles along with basal cisterns and sulci over the convexities appear within normal limits for the patient's age. Scattered areas of increased signal within the periventricular white matter which are believed to be stable from prior exam. No new areas of plaque are appreciated. No midline shift or mass-effect is seen. No acute diffusion abnormalities are appreciated. No abnormal areas of enhancement are seen. Impression: 1. Study shows motion artifact. Within this limitation, areas of increased signal are seen within the periventricular white matter. These findings are felt to be fairly stable from prior exam. No definite new findings are seen. No acute diffusion or abnormal enhancement is seen. Diagnostic code #2 This report was dictated in [place] Standard Time
[2019-10-03 16:01] VITALS: BP 127/83; PULSE 96
--- NOTE | 2019-10-03 16:51 | PCM.CONSN ---
- General Info Date of Service: 10/03/19 Subjective Update: She had spasms last night that responded to Flexeril. She declined to work with PT saying it makes her worse. She notes the longer she walks, the worse her foot drop gets. - Patient Data Vitals - Most Recent: Last Vital Signs Temp 36.3 C 10/03/19 15:59 Pulse 96 10/03/19 15:59 Resp 20 10/03/19 15:59 BP 127/83 10/03/19 15:59 Pulse Ox 95 10/03/19 15:59 Weight - Most Recent: 63.503 kg I&O - Last 24 Hours: Intake & Output 10/03/19 10/03/19 10/03/19 06:59 14:59 22:59 Intake Total 750 Output Total 500 Balance 250 Lab Results Last 24 Hours: Laboratory Results - last 24 hr 10/02/19 10/03/19 10/03/19 Range/Units 16:05 05:47 05:47 WBC 10.53 (4.0-11.0) K/uL RBC 4.01 L (4.30-5.90) M/uL Hgb 12.7 (12.0-16.0) g/dL Hct 37.8 (36.0-46.0) % MCV 94.3 (80.0-98.0) fL MCH 31.7 (27.0-32.0) pg MCHC 33.6 (31.0-37.0) g/dL RDW Std Deviation 42.4 (28.0-62.0) fl RDW Coeff of Betty 12 (11.0-15.0) % Plt Count 230 (150-400) K/uL MPV 8.90 (7.40-12.00) fL Neut % (Auto) 70.4 (48.0-80.0) % Lymph % (Auto) 15.6 L (16.0-40.0) % [place] % (Auto) 12.9 (0.0-15.0) % Eos % (Auto) 0.7 (0.0-7.0) % Baso % (Auto) 0.4 (0.0-1.5) % Neut # (Auto) 7.4 H (1.4-5.7) K/uL Lymph # (Auto) 1.6 (0.6-2.4) K/uL [place] # (Auto) 1.4 H (0.0-0.8) K/uL Eos # (Auto) 0.1 (0.0-0.7) K/uL Baso # (Auto) 0.0 (0.0-0.1) K/uL Nucleated RBC % 0.0 /100WBC Nucleated RBCs # 0 K/uL Sodium 140 139 (136-145) mmol/L Potassium 3.7 3.6 (3.5-5.1) mmol/L Chloride 102 104 (98-107) mmol/L Carbon Dioxide 24.8 26.2 (21.0-32.0) mmol/L BUN 12 11 (7.0-18.0) mg/dL Creatinine 0.8 0.8 (0.6-1.0) mg/dL Est Cr Clr Drug Dosing 73.18 73.18 mL/min Estimated GFR (MDRD) > 60.0 > 60.0 ml/min Glucose 101 95 (74-106) mg/dL Calcium 9.1 8.4 L (8.5-10.1) mg/dL Total Bilirubin 0.6 (0.2-1.0) mg/dL AST 14 L (15-37) IU/L ALT 19 (14-63) IU/L Alkaline Phosphatase 79 (46-116) U/L Troponin I < 0.050 (0.000-0.056) ng/mL Total Protein 7.4 (6.4-8.2) g/dL Albumin 3.6 (3.4-5.0) g/dL Globulin 3.8 (2.6-4.0) g/dL Albumin/Globulin Ratio 0.9 (0.9-1.6) Med Orders - Current: Current Medications Acetaminophen (Tylenol) 650 mg PO Q4H PRN PRN Reason: Pain/Fever Last Admin: 10/03/19 04:29 Dose: 650 mg Cyclobenzaprine HCl (Flexeril) 5 mg PO BID PRN PRN Reason: muscle spasms Last Admin: 10/03/19 04:24 Dose: 5 mg Enoxaparin Sodium (Lovenox) 40 mg SUBCUT Q24H [facility] Last Admin: 10/02/19 19:29 Dose: 40 mg Ceftriaxone Sodium/Dextrose 1 (gm/ Premix) 50 mls @ 100 mls/hr IV Q24H [facility] Ondansetron HCl (Zofran) 4 mg IVPUSH Q4H PRN PRN Reason: Nausea/Vomiting Last Admin: 10/03/19 04:30 Dose: 4 mg Discontinued Medications Gadobenate Dimeglumine (Multihance) 20 ml IVPUSH ONETIME STA Stop: 10/03/19 12:50 Last Admin: 10/03/19 12:52 Dose: 12 ml Ceftriaxone Sodium/Dextrose 1 (gm/ Premix) 50 mls @ 100 mls/hr IV ONETIME ONE Stop: 10/02/19 17:52 Last Admin: 10/02/19 17:45 Dose: 100 mls/hr - Exam Physical Findings Comments:: MS: Alert and Oriented X 3 Cranial Nerves: Pupils equally round and reactive to light. Visual carrillo full to confrontation. Gaze conjugate, EOMI. Sensation intact and symmetric to light touch. Facial strength is full and symmetric. Palate elevates symmetrically. Normal shrug bilaterally. Tongue protrudes midline Motor: Increased tone in lower limbs. Bilateral hip flexors 4/5, knee flexors 4/ 5, left ankle dorsiflexor 3/5, right ankle dorsiflexor 4+. Sensation: Sensation is intact to temp Gait: Wide based MRI brain C and T spine with contrast, comparison 03/14/2019 chronic T2 hyperintense lesions in the white matter of the brain and cervical and thoracic spinal cord. Sepsis Event Note - Evaluation Sepsis Screening Result: No Definite Risk - Focused Exam Vital Signs: Vital Signs Temp Pulse Resp BP Pulse Ox 10/03/19 15:59 36.3 C 96 20 127/83 95 10/03/19 11:30 35.8 C 77 20 113/83 95 10/03/19 08:00 36.3 C 80 18 105/71 93 L Date Exam was Performed: 10/03/19 Time Exam was Performed: 16:45 Consult PN Assessment/Plan Procedures: Procedures ANGIOTENSIN I ENZYME TEST (07/05/17) ASSAY IGA/IGD/IGG/IGM EACH (07/17/17) ASSAY OF FERRITIN (03/22/17) ASSAY OF FOLIC ACID RBC (03/22/17) ASSAY OF FOLIC ACID SERUM (03/22/17) ASSAY OF FREE THYROXINE (05/11/17) ASSAY OF PROTEIN OTHER (07/17/17) ASSAY OF SERUM ALBUMIN (07/17/17) ASSAY OF TROPONIN QUANT (02/13/18) ASSAY OF VITAMIN E (07/05/17) ASSAY THYROID STIM HORMONE (07/13/18) ASSAY TRIIODOTHYRONINE (T3) (05/11/17) BODY FLUID CELL COUNT (07/17/17) C-REACTIVE PROTEIN (02/13/18) CARDIOVASCULAR STRESS TEST (08/04/18) CHEST X-RAY 2VW FRONTAL&LATL (01/30/14) COLONOSCOPY AND BIOPSY (04/21/17) COMPLETE CBC W/AUTO DIFF WBC (02/22/19) COMPREHEN METABOLIC PANEL (02/22/19) CT ABD & PELVIS W/O CONTRAST (03/19/17) ELECTROCARDIOGRAM TRACING (07/13/18) EMERGENCY DEPT VISIT (02/13/18) EMERGENCY DEPT VISIT (12/04/17) EMERGENCY DEPT VISIT (03/19/17) EMERGENCY DEPT VISIT (11/10/15) EVALUATION OF WHEEZING (02/05/14) GLUCOSE OTHER FLUID (07/17/17) HEPATITIS C AB TEST (09/20/18) HIV-1 AG W/HIV-1 & HIV-2 AB (09/20/18) HPV HIGH-RISK TYPES (10/11/18) HYDRATION IV INFUSION INIT (02/13/18) IMMUNIZATION ADMIN (11/10/15) IMMUNOASSAY NONANTIBODY (07/17/17) IRON BINDING TEST (03/22/17) LIPID PANEL (09/20/18) LYME DISEASE ANTIBODY (07/05/17) METABOLIC PANEL TOTAL CA (03/22/17) MRI BRAIN STEM W/O & W/DYE (03/07/19) MRI BRAIN STEM W/O DYE (06/02/17) MRI CHEST SPINE W/O & W/DYE (03/14/19) MRI LUMBAR SPINE W/O DYE (05/20/17) MRI NECK SPINE W/O & W/DYE (03/14/19) OLIGOCLONAL BANDS (07/17/17) OTHER SOURCE ALBUMIN DANNI EA (07/17/17) PT EVAL MOD COMPLEX 30 MIN (02/14/19) RBC SED RATE AUTOMATED (02/13/18) ROUTINE VENIPUNCTURE (02/22/19) SYPHILIS TEST NON-TREP QUAL (07/17/17) TDAP VACCINE 7 YRS/> IM (11/10/15) THER/PROPH/DIAG IV INF INIT (12/31/18) URINALYSIS AUTO W/SCOPE (07/25/17) URINE CULTURE/COLONY COUNT (05/11/17) URINE TEST (04/21/17) VITAMIN B-12 (07/05/17) VITAMIN D 25 HYDROXY (02/22/19) X-RAY EXAM CHEST 1 VIEW (02/13/18) X-RAY EXAM CHEST 2 VIEWS (07/13/18) X-RAY EXAM RIBS UNI 2 VIEWS (12/04/17) (1) History of multiple sclerosis SNOMED Code(s): 476616968 Code(s): Z86.69 - PERSONAL HISTORY OF DIS OF THE NERVOUS SYS AND SENSE ORGANS Current Visit: Yes (2) Weakness SNOMED Code(s): 81197972 Code(s): R53.1 - WEAKNESS Current Visit: Yes Assessment:: Worsening weakness and spasms: Likely recrudescence of MS due to UTI. MRI showed now new or active lesions. I recommend discharge tomorrow if able to ambulate, get in and out of bed. Flexeril prn qhs for spasms. Problem List Initiated/Reviewed/Updated: Yes
--- NOTE | 2019-10-03 17:04 | PCM.DCSUM1 ---
Discharge Summary - Hospital Course HPI Initial Comments: Admission Date: 10/02/19 Discharge Date: 10/03/19 Admission Diagnosis: 1. Weakness concerning for MS flare 2. UTI Discharge Diagnosis: 1. Weakness concerning for MS flare 2. UTI Procedures: None Consults: None Hospital Course: The patient is a 53 year old female with PMH of MS, COPD, and HTN who presented to the ER concerned about MS flare. Reports Tuesday night, she developed lower back pain and her legs seized up on her. She then became more weak in her lower extremities and she began to develop left upper extremity weakness. In the ER, found to have slight white count of 11.9, CMP wnl , negative troponin, UA with signs of infection. Lumbar CT showed degenerative changes and CXR showed no acute process. Was started on Rocephin for UTI. Dr. Majano, neurology, was consulted and evaluated patient in ER. Patient was admitted to the floor. Per Dr. Majano's recommendations MRI of brain, C- spine, and T-spine were obtained and no changes compared to previous images so no treatment with steroids. PT worked with patient. Patient had spasticity on the floor and had relief with Flexeril. Patient was treated with Rocephin, urine culture still pending at time of discharge. By day of discharge patient was requesting discharge. Patient will go home with home health. Patient is unsteady when walking and a fall risk, has pain that is limiting ability to ambulate more than household distance, has weakness and deconditioning due to hospitalization for exacerbation of disease process. Patient will need PT for strengthening due to weakness from recent hospitalization, deconditioning due to disease process, gait instability and high fall risk. Disposition: Home with home health Discharge Condition: vitals stable, tolerating oral diet, ambulating without difficulty, symptom improvement Discharge Instructions: regular diet as tolerated, activity as tolerated, take medications as prescribed. Symptoms to report to physician include fever/chills , chest pain, shortness of breath, abdominal pain, erythema, drainage/discharge , or not improving as expected. Discharge Medications: Aromatic Cascara Fluid Extract [C[place]] 1 tab PO DAILY Ascorbic Acid [Vitamin C] Cannabidiol (Cbd) Extract [CBD Oil] 1,000 mg PO BID Cholecalciferol (Vitamin D3) [Vitamin D3] 5,000 unit PO DAILY Cod Liver Oil Fish Oil/[place]-3 Fatty Acids [Fish Oil 1,000 MG] Multivitamin [One Daily Multivitamin] Psyllium Husk [Metamucil] Cyclobenzaprine [Flexeril] 5 mg PO BID PRN cephALEXin [Keflex] 500 mg PO BID 4 Days Follow-up: 1. PCP- Dr. Rea 2. Neurology- Dr. Majano - Discharge Data Discharge Date: 10/03/19 Discharge Disposition: Home, W Home Health Agency 06 Condition: Fair - Referral to Home Health Date of Face to Face Encounter: 10/03/19 Reason for Homebound Status: unsteady when walking and a fall risk, has pain that is limiting ability to ambulate more thna household distance, has weakness and deconditioning due to hospitalization for exacerbation of disease process Primary Care Physician: Lizette Rea MD Skilled Need: PT- weakness due to recent hospiatlization, gait instability, high fall risk. - Patient Summary/Data Consults: Consultations 10/02/19 16:31 Consult to Physician [CONS] Stat 10/02/19 18:30 PT Evaluation and Treatment [CONS] Routine - Patient Instructions Diet: Usual Diet as Tolerated Activity: As Tolerated Showering/Bathing: May Shower Notify Provider of: Fever, Increased Pain, Swelling and Redness, Drainage, Nausea and/or Vomiting Other/Special Instructions: Additional symptoms include chest pain, shortness of breath, abdominal pain, increased weakness. - Discharge Plan *PRESCRIPTION DRUG MONITORING PROGRAM REVIEWED*: No *COPY OF PRESCRIPTION DRUG MONITORING REPORT IN PATIENT MINE: No Prescriptions/Med Rec: cephALEXin [Keflex] 500 mg PO BID 4 Days #8 cap Cyclobenzaprine [Flexeril] 5 mg PO BID PRN 5 Days #10 tablet PRN Reason: muscle spasms Home Medications: Home Meds Aromatic Cascara Fluid Extract [C[place]ara [place]] 1 tab PO DAILY 10/02/19 [ History] Ascorbic Acid [Vitamin C] 10/02/19 [History] Cannabidiol (Cbd) Extract [CBD Oil] 1,000 mg PO BID 10/02/19 [History] Cholecalciferol (Vitamin D3) [Vitamin D3] 5,000 unit PO DAILY 10/02/19 [History] Cod Liver Oil 10/02/19 [History] Fish Oil/[place]-3 Fatty Acids [Fish Oil 1,000 MG] 10/02/19 [History] Multivitamin [One Daily Multivitamin] 10/02/19 [History] Psyllium Husk [Metamucil] 10/02/19 [History] Cyclobenzaprine [Flexeril] 5 mg PO BID PRN 5 Days #10 tablet 10/03/19 [Rx] cephALEXin [Keflex] 500 mg PO BID 4 Days #8 cap 10/03/19 [Rx] Patient Handouts: Urinary Tract Infection, Adult, [id number], Weakness Referrals: Jade Majano MD [Physician] - Lizette Rea MD [Primary Care Provider] - - Discharge Summary/Plan Comment DC Time >30 min.: No - Patient Data Vitals - Most Recent: Last Vital Signs Temp 97.3 F 10/03/19 15:59 Pulse 96 10/03/19 15:59 Resp 20 10/03/19 15:59 BP 127/83 10/03/19 15:59 Pulse Ox 95 10/03/19 15:59 Weight - Most Recent: 63.503 kg I&O - Last 24 hours: Intake & Output 10/03/19 10/03/19 10/03/19 06:59 14:59 22:59 Intake Total 750 1000 Output Total 500 Balance 250 1000 Lab Results - Last 24 hrs: Laboratory Results - last 24 hr 10/02/19 10/03/19 10/03/19 Range/Units 16:05 05:47 05:47 WBC 10.53 (4.0-11.0) K/uL RBC 4.01 L (4.30-5.90) M/uL Hgb 12.7 (12.0-16.0) g/dL Hct 37.8 (36.0-46.0) % MCV 94.3 (80.0-98.0) fL MCH 31.7 (27.0-32.0) pg MCHC 33.6 (31.0-37.0) g/dL RDW Std Deviation 42.4 (28.0-62.0) fl RDW Coeff of Betty 12 (11.0-15.0) % Plt Count 230 (150-400) K/uL MPV 8.90 (7.40-12.00) fL Neut % (Auto) 70.4 (48.0-80.0) % Lymph % (Auto) 15.6 L (16.0-40.0) % [place] % (Auto) 12.9 (0.0-15.0) % Eos % (Auto) 0.7 (0.0-7.0) % Baso % (Auto) 0.4 (0.0-1.5) % Neut # (Auto) 7.4 H (1.4-5.7) K/uL Lymph # (Auto) 1.6 (0.6-2.4) K/uL [place] # (Auto) 1.4 H (0.0-0.8) K/uL Eos # (Auto) 0.1 (0.0-0.7) K/uL Baso # (Auto) 0.0 (0.0-0.1) K/uL Nucleated RBC % 0.0 /100WBC Nucleated RBCs # 0 K/uL Sodium 140 139 (136-145) mmol/L Potassium 3.7 3.6 (3.5-5.1) mmol/L Chloride 102 104 (98-107) mmol/L Carbon Dioxide 24.8 26.2 (21.0-32.0) mmol/L BUN 12 11 (7.0-18.0) mg/dL Creatinine 0.8 0.8 (0.6-1.0) mg/dL Est Cr Clr Drug Dosing 73.18 73.18 mL/min Estimated GFR (MDRD) > 60.0 > 60.0 ml/min Glucose 101 95 (74-106) mg/dL Calcium 9.1 8.4 L (8.5-10.1) mg/dL Total Bilirubin 0.6 (0.2-1.0) mg/dL AST 14 L (15-37) IU/L ALT 19 (14-63) IU/L Alkaline Phosphatase 79 (46-116) U/L Troponin I < 0.050 (0.000-0.056) ng/mL Total Protein 7.4 (6.4-8.2) g/dL Albumin 3.6 (3.4-5.0) g/dL Globulin 3.8 (2.6-4.0) g/dL Albumin/Globulin Ratio 0.9 (0.9-1.6) Med Orders - Current: Current Medications Acetaminophen (Tylenol) 650 mg PO Q4H PRN PRN Reason: Pain/Fever Last Admin: 10/03/19 04:29 Dose: 650 mg Cyclobenzaprine HCl (Flexeril) 5 mg PO BID PRN PRN Reason: muscle spasms Last Admin: 10/03/19 04:24 Dose: 5 mg Enoxaparin Sodium (Lovenox) 40 mg SUBCUT Q24H [facility] Last Admin: 10/02/19 19:29 Dose: 40 mg Ceftriaxone Sodium/Dextrose 1 (gm/ Premix) 50 mls @ 100 mls/hr IV Q24H [facility] Ondansetron HCl (Zofran) 4 mg IVPUSH Q4H PRN PRN Reason: Nausea/Vomiting Last Admin: 10/03/19 04:30 Dose: 4 mg Discontinued Medications Gadobenate Dimeglumine (Multihance) 20 ml IVPUSH ONETIME STA Stop: 10/03/19 12:50 Last Admin: 10/03/19 12:52 Dose: 12 ml Ceftriaxone Sodium/Dextrose 1 (gm/ Premix) 50 mls @ 100 mls/hr IV ONETIME ONE Stop: 10/02/19 17:52 Last Admin: 10/02/19 17:45 Dose: 100 mls/hr
[2019-10-03] MEDS ORDERED: cefTRIAXone 1 GM in Premix Bag 1 BAG IV SCH (18:30)
== END 2019-10-03 17:39 | disposition home health service (06) ==
LOC: MW.ED 15:51 → MW.MS 17:45 → MW.ED 18:05
PROVIDERS: ADMIT Internal Medicine; ATTEND Internal Medicine
DX: R53.1 Weakness (principal); G35 Multiple sclerosis; N39.0 Urinary tract infection, site not specified; J44.9 Chronic obstructive pulmonary disease, unspecified; I10 Essential (primary) hypertension; M47.816 Spondylosis without myelopathy or radiculopathy, lumbar region; Z87.891 Personal history of nicotine dependence
CPT/HCPCS: 36415; 70553; 71045; 72131; 72156; 72157; 80048; 80053; 81001; 84484; 85025; 87086; 87088; 87186; 93005; 96374; 97161; 99285; A9270; A9577; J0696; J1650; J2405

== ENCOUNTER 2021-06-26 06:12 | Emergency (ER) | payer BC, OTHER ==
[2021-06-26] MEDS ORDERED: Albuterol/Ipratropium 3.0-0.5 MG/3 ML Neb Soln NEB ONE (06:27)
[2021-06-26] MEDS ORDERED: Cyclobenzaprine 10 MG Tab PO ONE (06:27)
[2021-06-26] MEDS ORDERED: Acetaminophen 500 MG Tab PO ONE (06:36)
--- NOTE | 2021-06-26 06:41 | EDM.PDOC ---
<Swapnil Clemens - Last Filed: 06/26/21 06:51> ED HPI GENERAL MEDICAL PROBLEM - General Chief Complaint: General Stated Complaint: EMS Time Seen by Provider: 06/26/21 06:29 - History of Present Illness INITIAL COMMENTS - FREE TEXT/NARRATIVE: CHIEF COMPLAINT(S): "I have MS and I am in a muscle seizure bad." HISTORY OF PRESENT ILLNESS: This is a 55-year-old man with a past medical history of multiple sclerosis, hypertension without any reported COPD who comes to the emergency department with a chief complaint of "I have MS and I am in a muscle seizure bad." The patient states that she has MS and that she is in a muscle seizure bad. She describes this as "discomfort because her legs want to bend backwards as they are in a seizure." She states that she has total body pain and it is rated 10 out of 10 and achy. She states that the last time she had this it was because of a bladder infection because she has bladder issues and she is not able to fully evacuate her bladder. She states that she is supposed to be on daily antibiotics however she is afraid of taking daily antibiotics and does not take them as she is prescribed. She denies any chest pain, shortness of breath, abdominal pain, nausea or vomiting. She states that when she was at home she did slide off the couch because of her muscle spasms. She denies any bowel incontinence, head injury or any other issues. She denies any runny nose or congestion. She states that she does not cath and that is why she is on antibiotics because she cannot fully empty her bladder. She denies any other symptoms. There are no aggravating factors for her pain or relieving factors. She has not yet tried anything. REVIEW OF SYSTEMS: Constitutional: Denies fever, chills. Eyes: Denies eye pain Ears, Nose, Mouth, & Throat: Denies earache Cardiovascular: Denies chest pain Respiratory: Denies shortness of breath Gastrointestinal: Denies Nausea, vomiting, diarrhea, hematochezia. Genitourinary: Denies hematuria, dysuria, increased urinary frequency Skin:Denies a rash MSK: Positive for bilateral lower extremity muscle spasms Neurological: Positive for chronic lower extremity weakness. Denies blurred vision, numbness, tingling Psychiatric: Denies depression PAST MEDICAL HISTORY: As per history of present illness and as reviewed below otherwise noncontributory. SURGICAL HISTORY: As per history of present illness and as reviewed below otherwise noncontributory. SOCIAL HISTORY: As per history of present illness and as reviewed below otherwise noncontributory. FAMILY HISTORY: As per history of present illness and as reviewed below otherwise noncontributory. EXAMINATION OF ORGAN SYSTEMS/BODY AREAS: Constitutional: Blood pressure was 132/74, heart rate 78, respiratory rate 18 with an oxygen saturation 95% on room air. Temperature 37.0 General: Middle-aged woman who appears to be mildly anxious but in no acute distress Psychiatric: Anxious appearing but is cooperative Eyes: No scleral icterus or conjunctival erythema ENMT: Moist mucous membranes. No pharyngeal erythema Cardiovascular: Regular, rate, and rhythm. No gallops, murmurs, or rubs. Bilateral upper extremity pulses symmetric and intact. No peripheral edema. No JVD. Respiratory: The patient is speaking in full sentences however does have an intermittent cough with bilateral inspiratory and expiratory wheezing. No prolonged expiratory phase. Gastrointestinal: Soft, non-tender, non-distended. Normoactive bowel sounds Genitourinary: Mild suprapubic tenderness. No CVA tenderness musculoskeletal: Patient is able to flex and extend at the knee. She is able to lift her legs off the bed against gravity. Skin: No lesions or abrasions. Neurological: Alert, GCS 15 distal sensation is intact. Strength 4-5 in bilateral upper and lower extremities. MEDICAL DECISION MAKING AND COURSE IN THE ED WITH INTERPRETATION/REVIEW OF DIAGNOSTIC STUDIES: This is a 55-year-old woman with a reported past medical history of multiple sclerosis and hypertension who comes to the emergency department with concerns for bilateral lower extremity muscle spasms and concern for urinary tract infection who has normal vital signs and appears well on exa mination. The patient is wheezing on examination denies any history of COPD. I did review the patient's chart and approximately 1 year ago the patient was admitted to the hospital for similar symptoms where she had muscle spasms, urinary tract infection. There is a reported history of COPD on that admission and discharge note. Therefore given the possibility of COPD we will provide the patient with a DuoNeb treatment. It appears that the patient was treated with Flexeril in the past with improvement in her muscle spasms therefore we will provide the patient with Flexeril. Given her concerns for urinary tract infection and given her history of multiple sclerosis will obtain CBC, CMP, urinalysis. The patient is afebrile therefore I do not believe any further work-up is indicated. The patient appears to be around her baseline based on prior records and no new weakness is found on examination. We will reevaluate the patient. We will provide the patient with Tylenol for pain relief. RN notified me that the patient refused the breathing treatment as she states that the COPD was a misdiagnosis. At this time given that the patient's oxygen level is normal and she is not in any shortness of breath we will not give this medication treatment to her per her request. At the time of signout imaging and labs were pending. The patient was signed out to oncoming physician pending further work-up and disposition. DISPOSITION: Patient was signed out to oncoming day team physician pending further work-up and final disposition CONDITION: Fair PROCEDURES: None FINAL IMPRESSION(S)/DIAGNOSES: Acute bilateral lower extremity muscle spasms Swapnil Clemens M.D. Lower Leg Pain Score (Numeric/FACES): 10 - Related Data Allergies Allergy/AdvReac Type Severity Reaction Status Date / Time No Known Allergies Allergy Verified 10/02/19 16:00 Home Meds: Home Meds Aromatic Cascara Fluid Extract [Cascara [place]] 1 tab PO DAILY 10/02/19 [History] Ascorbic Acid [Vitamin C] 10/02/19 [History] Cannabidiol (Cbd) Extract [CBD Oil] 1,000 mg PO BID 10/02/19 [History] Cholecalciferol (Vitamin D3) [Vitamin D3] 5,000 unit PO DAILY 10/02/19 [History] Cod Liver Oil 10/02/19 [History] Fish Oil/[place]-3 Fatty Acids [Fish Oil 1,000 MG] 10/02/19 [History] Multivitamin [One Daily Multivitamin] 10/02/19 [History] Psyllium Husk [Metamucil] 10/02/19 [History] Cyclobenzaprine [Flexeril] 5 mg PO BID PRN 5 Days #10 tablet 10/03/19 [Rx] cephALEXin [Keflex] 500 mg PO BID 4 Days #8 cap 10/03/19 [Rx] Past Medical History - Past Health History Medical/Surgical History: Denies Medical/Surgical History HEENT History: Reports: Impaired Vision, Other (See Below) Other HEENT History: wears glasses Cardiovascular History: Reports: Hypertension Other Cardiovascular History: no longer takes meds Respiratory History: Reports: COPD Other Respiratory History: no longer uses inhalers/nebulizers Gastrointestinal History: Reports: Chronic Constipation Genitourinary History: Reports: None 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: Musculoskeletal History: Reports: Fracture Other Musculoskeletal History: hx of fx arm, leg clavicle Neurological History: Reports: MS Psychiatric History: Reports: None Endocrine/Metabolic History: Reports: None Hematologic History: Reports: Anemia Immunologic History: Reports: None Oncologic (Cancer) History: Reports: None Dermatologic History: Reports: None - Infectious Disease History Infectious Disease History: Reports: Chicken Pox - Past Surgical History Head Surgeries/Procedures: Reports: None HEENT Surgical History: Reports: Tonsillectomy Cardiovascular Surgical History: Reports: None Respiratory Surgical History: Reports: None GI Surgical History: Reports: None Female Surgical History: Reports: Other (See Below) Other Female Surgeries/Procedures: Laparoscopy, uterine myomectomy Endocrine Surgical History: Reports: None Neurological Surgical History: Reports: None Musculoskeletal Surgical History: Reports: None Oncologic Surgical History: Reports: None Dermatological Surgical History: Reports: None Social & Family History - Family History Family Medical History: No Pertinent Family History - Caffeine Use Caffeine Use: Reports: None - Recreational Drug Use Recreational Drug Use: No ED ROS GENERAL - Review of Systems Review Of Systems: See Below ED EXAM, GENERAL - Physical Exam Exam: See Below Departure - Departure Disposition: Home, Self-Care 01 Clinical Impression: Leg muscle spasm - Discharge Information Instructions: Muscle Cramps and Spasms, [id number] Referrals: PCP,None [Primary Care Provider] - Forms: ED Department Discharge Additional Instructions: Return for fevers, reoccurrence of significant symptoms, any other neurologic signs or symptoms. Follow-up with your neurologist and primary care doctor early next week. The following information is given to patients seen in the emergency department who are being discharged to home. This information is to outline your options for follow-up care. We provide all patients seen in our emergency department with a follow-up referral. The need for follow-up, as well as the timing and circumstances, are variable depending upon the specifics of your emergency department visit. If you don't have a primary care physician on staff, we will provide you with a referral. We always advise you to contact your personal physician following an emergency department visit to inform them of the circumstance of the visit and for follow-up with them and/or the need for any referrals to a consulting specialist. The emergency department will also refer you to a specialist when appropriate. This referral assures that you have the opportunity for follow-up care with a specialist. All of these measure are taken in an effort to provide you with optimal care, which includes your follow-up. Primary care clinics in the area: [facility] [address] [place] [address] [place] [address] Under all circumstances we always encourage you to contact your private physician who remains a resource for coordinating your care. When calling for follow-up care, please make the office aware that this follow-up is from your recent emergency room visit. If for any reason you are refused follow-up, please contact the [facility] Emergency Department at and asked to speak to the emergency department charge nurse. <Sukh Norton - Last Filed: 06/26/21 08:24> ED EXAM, GENERAL - Physical Exam Exam: See Below Course - Vital Signs Text/Narrative:: Differential diagnosis: Dehydration, UTI, electrolyte abnormalities, MS flare, other Patient presents to the emergency department as outlined by Dr. Clemens. I took over pending laboratory testing. The patient has blood in her urine but the rest of her work-up is effectively unremarkable. Patient states that she has a history of blood in her urine in the past. No fever or leukocytosis. Urine has been sent for culture. I spoke to the patient's neurologist, Dr. Majano. She states that the patient has spasticity in her legs quite a bit at baseline from her MS. The patient is actually feeling significantly better after Flexeril. She is able to ambulate and think she can take care of herself at home. Supportive treatment with Flexeril as needed, urine culture and PCP/neurology follow-up discussed Last Recorded V/S: Last Vital Signs Temp 37.0 C 06/26/21 06:41 Pulse 69 06/26/21 08:00 Resp 16 06/26/21 08:00 BP 111/75 06/26/21 08:00 Pulse Ox 94 L 06/26/21 08:00 - Orders/Labs/Meds Orders: Active Orders 24 hr Category Date Time Status RT Aerosol Therapy [RC] ASDIRECTED Care 06/26/21 06:27 Active CULTURE URINE [MREF] Stat Lab 06/26/21 06:26 Received Labs: Laboratory Tests 06/26/21 06/26/21 06/26/21 Range/Units 06:26 06:49 06:49 WBC 7.23 (4.0-11.0) K/uL RBC 3.81 L (4.30-5.90) M/uL Hgb 12.5 (12.0-16.0) g/dL Hct 36.8 (36.0-46.0) % MCV 96.6 (80.0-98.0) fL MCH 32.8 H (27.0-32.0) pg MCHC 34.0 (31.0-37.0) g/dL RDW Std Deviation 43.5 (28.0-62.0) fl RDW Coeff of Betty 12 (11.0-15.0) % Plt Count 231 (150-400) K/uL MPV 8.70 (7.40-12.00) fL Neut % (Auto) 74.4 (48.0-80.0) % Lymph % (Auto) 8.4 L (16.0-40.0) % [place] % (Auto) 16.5 H (0.0-15.0) % Eos % (Auto) 0.1 (0.0-7.0) % Baso % (Auto) 0.6 (0.0-1.5) % Neut # (Auto) 5.4 (1.4-5.7) K/uL Lymph # (Auto) 0.6 (0.6-2.4) K/uL [place] # (Auto) 1.2 H (0.0-0.8) K/uL Eos # (Auto) 0.0 (0.0-0.7) K/uL Baso # (Auto) 0.0 (0.0-0.1) K/uL Nucleated RBC % 0.0 /100WBC Nucleated RBCs # 0 K/uL Sodium 138 (136-145) mmol/L Potassium 4.1 (3.5-5.1) mmol/L Chloride 104 (98-107) mmol/L Carbon Dioxide 28.1 (21.0-32.0) mmol/L BUN 13 (7.0-18.0) mg/dL Creatinine 0.8 (0.6-1.0) mg/dL Est Cr Clr Drug Dosing 71.50 mL/min Estimated GFR (MDRD) > 60.0 ml/min Glucose 111 H (74-106) mg/dL Lactic Acid (0.4-2.0) mmol/L Calcium 8.1 L (8.5-10.1) mg/dL Total Bilirubin 0.3 (0.2-1.0) mg/dL AST 12 L (15-37) IU/L ALT 16 (14-63) IU/L Alkaline Phosphatase 59 (46-116) U/L Total Protein 6.2 L (6.4-8.2) g/dL Albumin 3.1 L (3.4-5.0) g/dL Globulin 3.1 (2.6-4.0) g/dL Albumin/Globulin Ratio 1.0 (0.9-1.6) Urine Color YELLOW Urine Appearance SLT CLOUDY Urine pH 5.5 (5.0-8.0) Ur Specific [place] >= 1.030 (1.001-1.035) Urine Protein NEGATIVE (NEGATIVE) mg/dL Urine Glucose (UA) NEGATIVE (NEGATIVE) mg/dL Urine Ketones TRACE H (NEGATIVE) mg/dL Urine Occult Blood MODERATE H (NEGATIVE) Urine Nitrite NEGATIVE (NEGATIVE) Urine Bilirubin NEGATIVE (NEGATIVE) Urine Urobilinogen 0.2 (<2.0) EU/dL Ur Leukocyte Esterase SMALL H (NEGATIVE) Urine RBC 10-12 (0-2/HPF) Urine WBC 0-2 (0-5/HPF) Ur Epithelial Cells OCCASIONAL (NONE-FEW) Urine Bacteria FEW (NEGATIVE) 06/26/21 Range/Units 06:49 WBC (4.0-11.0) K/uL RBC (4.30-5.90) M/uL Hgb (12.0-16.0) g/dL Hct (36.0-46.0) % MCV (80.0-98.0) fL MCH (27.0-32.0) pg MCHC (31.0-37.0) g/dL RDW Std Deviation (28.0-62.0) fl RDW Coeff of Betty (11.0-15.0) % Plt Count (150-400) K/uL MPV (7.40-12.00) fL Neut % (Auto) (48.0-80.0) % Lymph % (Auto) (16.0-40.0) % [place] % (Auto) (0.0-15.0) % Eos % (Auto) (0.0-7.0) % Baso % (Auto) (0.0-1.5) % Neut # (Auto) (1.4-5.7) K/uL Lymph # (Auto) (0.6-2.4) K/uL [place] # (Auto) (0.0-0.8) K/uL Eos # (Auto) (0.0-0.7) K/uL Baso # (Auto) (0.0-0.1) K/uL Nucleated RBC % /100WBC Nucleated RBCs # K/uL Sodium (136-145) mmol/L Potassium (3.5-5.1) mmol/L Chloride (98-107) mmol/L Carbon Dioxide (21.0-32.0) mmol/L BUN (7.0-18.0) mg/dL Creatinine (0.6-1.0) mg/dL Est Cr Clr Drug Dosing mL/min Estimated GFR (MDRD) ml/min Glucose (74-106) mg/dL Lactic Acid 0.7 (0.4-2.0) mmol/L Calcium (8.5-10.1) mg/dL Total Bilirubin (0.2-1.0) mg/dL AST (15-37) IU/L ALT (14-63) IU/L Alkaline Phosphatase (46-116) U/L Total Protein (6.4-8.2) g/dL Albumin (3.4-5.0) g/dL Globulin (2.6-4.0) g/dL Albumin/Globulin Ratio (0.9-1.6) Urine Color Urine Appearance Urine pH (5.0-8.0) Ur Specific [place] (1.001-1.035) Urine Protein (NEGATIVE) mg/dL Urine Glucose (UA) (NEGATIVE) mg/dL Urine Ketones (NEGATIVE) mg/dL Urine Occult Blood (NEGATIVE) Urine Nitrite (NEGATIVE) Urine Bilirubin (NEGATIVE) Urine Urobilinogen (<2.0) EU/dL Ur Leukocyte Esterase (NEGATIVE) Urine RBC (0-2/HPF) Urine WBC (0-5/HPF) Ur Epithelial Cells (NONE-FEW) Urine Bacteria (NEGATIVE) Meds: Medications Discontinued Medications Generic Name Dose Route Start Last Admin Trade Name Katherine PRN Reason Stop Dose Admin Acetaminophen 1,000 mg 06/26/21 06:36 06/26/21 06:41 Acetaminophen 500 Mg Tab PO 06/26/21 06:37 1,000 mg ONETIME ONE Administration Albuterol/Ipratropium 3 ml 06/26/21 06:27 06/26/21 06:41 Albuterol/Ipratropium 3.0-0.5 Mg/3 Ml Neb Soln NEB 06/26/21 06:28 Not Given ONETIME ONE Cyclobenzaprine HCl 10 mg 06/26/21 06:27 06/26/21 06:40 Cyclobenzaprine 10 Mg Tab PO 06/26/21 06:28 10 mg ONETIME ONE Administration Departure - Departure Time of Disposition: 08:23 Condition: Good Sepsis Event Note (ED) - Focused Exam Vital Signs: Vital Signs Temp Temp Pulse Resp BP Pulse Ox 06/26/21 08:00 69 16 111/75 94 L 06/26/21 07:10 86 16 126/79 94 L 06/26/21 06:41 37.0 C 06/26/21 06:13 37.0 C 78 18 132/74 95
[2021-06-26 07:17] LABS: BLOOD UREA NITROGEN,BUN 13 mg/dL (7.0-18.0); CARBON DIOXIDE,CO2 28.1 mmol/L (21.0-32.0); CHLORIDE,CL 104 mmol/L (98-107); GLUCOSE RANDOM 111 mg/dL (74-106); POTASSIUM,K 4.1 mmol/L (3.5-5.1); SODIUM,NA 138 mmol/L (136-145)
--- NOTE | 2021-06-26 07:39 | CR ---
INDICATION: wheezing TECHNIQUE: Chest 1 view. COMPARISON: None. FINDINGS: Cardiovascular and mediastinum: Heart size and vasculature are normal in caliber and appearance. Mediastinum is within normal limits. Lungs and pleural space: Lungs are clear. No sign of infiltrate or mass. No sign of pleural effusion. No pneumothorax. Bones and soft tissues: No significant findings. IMPRESSION: Unremarkable chest. Dictated by: Justin Lopes MD @ 06/26/2021 07:39:25 (Electronically Signed)
[2021-06-26 08:47] VITALS: BP 120/79; PULSE 68
== END 2021-06-26 08:45 | disposition home or self-care (01) ==
LOC: MW.ED 06:12
DX: M62.838 Other muscle spasm (principal); I10 Essential (primary) hypertension; J44.9 Chronic obstructive pulmonary disease, unspecified; Z79.899 Other long term (current) drug therapy
CPT/HCPCS: 36415; 71045; 80053; 81001; 83605; 85025; 87086; 99285; A9270